=== PATIENT | female | born 1985 | race Caucasian/White ===

== ENCOUNTER 2018-07-21 15:04 | Emergency (ER) | payer BC, OTHER ==
[2018-07-21 15:15] VITALS: BP 180/111
[2018-07-21] MEDS: Sodium Chloride 0.9% 10 ML Syringe FLUSH PRN ×2 (15:53→17:19)
[2018-07-21] MEDS ORDERED: Iopamidol 755 Mg/ML 100 ML Bottle IVPUSH ONE (16:54)
[2018-07-21] MEDS ORDERED: Sodium Chloride 0.9% 10 ML Syringe FLUSH ONE (16:54)
[2018-07-21] MEDS ORDERED: Sodium Chloride 0.9% 100 ML IV SCH (17:00)
--- NOTE | 2018-07-21 17:35 | CT ---
CT chest Technique: Multiple axial sections through the chest were obtained. Intravenous contrast was utilized. Reconstructed coronal and sagittal images were obtained. Study performed as a pulmonary angiogram protocol. Comparison: Prior chest CT study of 04/08/15. Findings: Pulmonary arteries are not optimally opacified. No filling defects are seen within the main or segmental branches. Smaller subsegmental pulmonary emboli could easily be missed. Mediastinum and hilar regions are unremarkable. No axillary adenopathy is seen. Small portion of the upper abdominal structures that are seen appear within normal limits. Small subpleural nodule noted within the right lung base which is unchanged from prior CT exam. Second smaller and adjacent subpleural nodule is seen which is also felt to be stable. Third small subpleural nodule noted within the left base which is also stable. Lungs otherwise are clear. No acute parenchymal change is appreciated. No pleural effusions or pneumothorax is seen. Minimal hiatal hernia is noted. Bone window settings were reviewed which shows no acute osseous abnormality. Impression: 1. Less than optimal pulmonary angiogram as noted above. No pulmonary embolism within the main or segmental branches. Smaller subsegmental pulmonary emboli could be missed. 2. Other incidental findings as noted above. Nothing acute is appreciated. Diagnostic code #2
--- NOTE | 2018-07-21 18:06 | EDM.PDOC ---
ED HPI GENERAL MEDICAL PROBLEM - General Chief Complaint: Chest Pain Stated Complaint: CHEST PAIN Time Seen by Provider: 07/21/18 15:23 Source of Information: Reports: Patient History Limitations: Reports: No Limitations - History of Present Illness INITIAL COMMENTS - FREE TEXT/NARRATIVE: The patient presents with chest pain and shortness of breath. This started today. She says it is a little better. She has no fever, chills or cough. She says this has happened before. She had her 3rd child a few months ago and she had preeclampsia. She continued to have hypertension after that. She has gained weight after . Her blood pressure was elevated today. She is on losartan for the blood pressure. She noticed that her periods are irregular lately and when she does have her period her blood pressure will be elevated. She has no fever, chills, cough, congestion or runny nose. Onset: Gradual Duration: Hour(s): Location: Reports: Chest Quality: Reports: Sharp Severity: Moderate Improves with: Reports: None Worsens with: Reports: None Associated Symptoms: Reports: Chest Pain, Shortness of Breath. Denies: Cough, Fever/Chills, Headaches, Nausea/Vomiting Chest Pain Score (Numeric/FACES): 3 - Related Data Allergies Allergy/AdvReac Type Severity Reaction Status Date / Time citalopram Allergy Cannot Verified 07/21/18 15:13 Remember hydrochlorothiazide Allergy Cannot Verified 07/21/18 15:13 Remember lisinopril Allergy Cannot Verified 07/21/18 15:13 Remember Sulfa (Sulfonamide Allergy Cannot Verified 07/21/18 15:13 Antibiotics) Remember Home Meds: Home Meds Labetalol [Normodyne] 100 mg PO BID #60 tab 07/21/18 [Rx] Losartan [Cozaar] 100 mg PO DAILY 07/21/18 [History] Past Medical History Cardiovascular History: Reports: Hypertension Other Cardiovascular History: Periods of tachycardia and chest pain with unknown origin. 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 Psychiatric History: Reports: Anxiety Dermatologic History: Reports: Other (See Below) Other Dermatologic History: Cysts removed - Past Surgical History HEENT Surgical History: Reports: Tonsillectomy Other HEENT Surgeries/Procedures: Widson teeth removed GI Surgical History: Reports: Appendectomy Social & Family History - Family History Cardiac: Reports: Hypertension Oncologic: Reports: Lymphoma - Tobacco Use Smoking Status *Q: Never Smoker - Recreational Drug Use Recreational Drug Use: No ED ROS GENERAL - Review of Systems Review Of Systems: See Below Constitutional: Reports: No Symptoms HEENT: Reports: No Symptoms Respiratory: Reports: Shortness of Breath Cardiovascular: Reports: Chest Pain Endocrine: Reports: No Symptoms GI/Abdominal: Reports: No Symptoms : Reports: No Symptoms Musculoskeletal: Reports: No Symptoms ED EXAM, GENERAL - Physical Exam Exam: See Below Exam Limited By: No Limitations General Appearance: Alert, No Apparent Distress Ears: Normal External Exam Nose: Normal Inspection Head: Atraumatic, Normocephalic Neck: Normal Inspection Respiratory/Chest: No Respiratory Distress, Lungs Clear, Normal Breath Sounds Cardiovascular: Regular Rate, Rhythm, No Edema, No Murmur GI/Abdominal: Soft, Non-Tender, No Organomegaly, No Mass Back Exam: Normal Inspection Extremities: Normal Inspection EKG INTERPRETATION EKG Date: 07/21/18 Time: 15:15 Rhythm: Other (sinus tachycardia) Rate (Beats/Min): 107 [place]: Normal P-Wave: Present QRS: Normal ST-T: Normal QT: Normal Course - Vital Signs Last Recorded V/S: Last Vital Signs Temp 100.1 F 07/21/18 15:11 Pulse 119 H 07/21/18 15:11 Resp 26 H 07/21/18 15:11 BP 180/111 H 07/21/18 15:11 Pulse Ox 100 07/21/18 15:11 - Orders/Labs/Meds Orders: Active Orders 24 hr Category Date Time Status Cardiac Monitoring [RC] . DIRECTED Care 07/21/18 15:35 Active EKG Documentation Completion [RC] STAT Care 07/21/18 15:36 Active Peripheral IV Care [RC] . DIRECTED Care 07/21/18 15:36 Active Sodium Chloride 0.9% [Normal Saline] 100 ml Med 07/21/18 17:00 Active IV ASDIRECTED Sodium Chloride 0.9% [Saline Flush] Med 07/21/18 15:35 Active 10 ml FLUSH ASDIRECTED PRN Peripheral IV Insertion Adult [OM.PC] Stat Oth 07/21/18 15:35 Ordered Medication Orders Sodium Chloride (Normal Saline) 100 mls @ 60 mls/hr IV ASDIRECTED [facility] Last Admin: 07/21/18 17:19 Dose: 60 mls/hr Sodium Chloride (Saline Flush) 10 ml FLUSH ASDIRECTED PRN PRN Reason: Keep Vein Open Last Admin: 07/21/18 17:19 Dose: 10 ml Admin: 07/21/18 15:53 Dose: 10 ml Labs: Laboratory Tests 07/21/18 07/21/18 07/21/18 Range/Units 15:51 15:51 15:51 WBC 8.72 (3.98-10.04) K/mm3 RBC 5.12 (3.98-5.22) M/mm3 Hgb 15.6 (11.2-15.7) gm/L Hct 45.2 H (34.1-44.9) % MCV 88.3 (79.4-94.8) fl MCH 30.5 (25.6-32.2) pg MCHC 34.5 (32.2-35.5) g/dl RDW Std Deviation 41.4 (36.4-46.3) fL Plt Count 394 H (182-369) K/mm3 MPV 9.2 L (9.4-12.3) fl Neut % (Auto) 49.4 (34.0-71.1) % Lymph % (Auto) 43.0 (19.3-51.7) % Ellis % (Auto) 6.1 (4.7-12.5) % Eos % (Auto) 1.0 (0.7-5.8) Baso % (Auto) 0.5 (0.1-1.2) % Neut # (Auto) 4.31 (1.56-6.13) K/mm3 Lymph # (Auto) 3.75 H (1.18-3.74) K/mm3 Ellis # (Auto) 0.53 H (0.24-0.36) K/mm3 Eos # (Auto) 0.09 (0.04-0.36) K/mm3 Baso # (Auto) 0.04 (0.01-0.08) K/mm3 D-Dimer, Quantitative 0.62 H (0.19-0.50) mg/L Sodium 140 (136-145) mEq/L Potassium 4.0 (3.5-5.1) mEq/L Chloride 107 (98-107) mEq/L Carbon Dioxide 25 (21-32) mEq/L Anion Gap 12.0 (5-15) BUN 9 (7-18) mg/dL Creatinine 0.7 (0.55-1.02) mg/dL Est Cr Clr Drug Dosing 110.12 mL/min Estimated GFR (MDRD) > 60 (>60) mL/min BUN/Creatinine Ratio 12.9 L (14-18) Glucose 97 (74-106) mg/dL Calcium 8.8 (8.5-10.1) mg/dL Total Bilirubin 0.3 (0.2-1.0) mg/dL AST 17 (15-37) U/L ALT 22 (14-59) U/L Alkaline Phosphatase 60 (46-116) U/L Troponin I < 0.017 (0.00-0.056) ng/mL Total Protein 6.1 L (6.4-8.2) g/dl Albumin 1.9 L (3.4-5.0) g/dl Globulin 4.2 gm/dL Albumin/Globulin Ratio 0.5 L (1-2) TSH 3rd Generation 2.729 (0.358-3.74) uIU/mL HCG, Qual (NEGATIVE) 07/21/18 Range/Units 15:51 WBC (3.98-10.04) K/mm3 RBC (3.98-5.22) M/mm3 Hgb (11.2-15.7) gm/L Hct (34.1-44.9) % MCV (79.4-94.8) fl MCH (25.6-32.2) pg MCHC (32.2-35.5) g/dl RDW Std Deviation (36.4-46.3) fL Plt Count (182-369) K/mm3 MPV (9.4-12.3) fl Neut % (Auto) (34.0-71.1) % Lymph % (Auto) (19.3-51.7) % Ellis % (Auto) (4.7-12.5) % Eos % (Auto) (0.7-5.8) Baso % (Auto) (0.1-1.2) % Neut # (Auto) (1.56-6.13) K/mm3 Lymph # (Auto) (1.18-3.74) K/mm3 Ellis # (Auto) (0.24-0.36) K/mm3 Eos # (Auto) (0.04-0.36) K/mm3 Baso # (Auto) (0.01-0.08) K/mm3 D-Dimer, Quantitative (0.19-0.50) mg/L Sodium (136-145) mEq/L Potassium (3.5-5.1) mEq/L Chloride (98-107) mEq/L Carbon Dioxide (21-32) mEq/L Anion Gap (5-15) BUN (7-18) mg/dL Creatinine (0.55-1.02) mg/dL Est Cr Clr Drug Dosing mL/min Estimated GFR (MDRD) (>60) mL/min BUN/Creatinine Ratio (14-18) Glucose (74-106) mg/dL Calcium (8.5-10.1) mg/dL Total Bilirubin (0.2-1.0) mg/dL AST (15-37) U/L ALT (14-59) U/L Alkaline Phosphatase (46-116) U/L Troponin I (0.00-0.056) ng/mL Total Protein (6.4-8.2) g/dl Albumin (3.4-5.0) g/dl Globulin gm/dL Albumin/Globulin Ratio (1-2) TSH 3rd Generation (0.358-3.74) uIU/mL HCG, Qual Negative (NEGATIVE) Meds: Medications Generic Name Dose Route Start Last Admin Trade Name Freq PRN Reason Stop Dose Admin Sodium Chloride 100 mls @ 60 mls/hr 07/21/18 17:00 07/21/18 17:19 Normal Saline IV 60 mls/hr ASDIRECTED BIRDIE Administration Sodium Chloride 10 ml 07/21/18 15:35 07/21/18 17:19 Saline Flush FLUSH 10 ml ASDIRECTED PRN Administration Keep Vein Open Discontinued Medications Generic Name Dose Route Start Last Admin Trade Name Freq PRN Reason Stop Dose Admin Iopamidol 100 ml 07/21/18 16:54 07/21/18 17:19 Isovue-370 (76%) IVPUSH 07/21/18 16:55 100 ml ONETIME ONE Administration Sodium Chloride 10 ml 07/21/18 16:54 Saline Flush FLUSH 07/21/18 16:55 ONETIME ONE - Re-Assessments/Exams Free Text/Narrative Re-Assessment/Exam: 07/21/18 18:07 Her CBC looks good. Her CMP was negative. Her HCG was negative along with her TSH. Her D-dimer was elevated at 0.62. I ordered a CT angio of her chest and it shows nothing acute. 07/21/18 18:14 She is frustrated with how her blood pressure has been. She was on labetalol once and that helped better. I will switch her to the labetalol and have her wean of the losartan. Departure - Departure Time of Disposition: 18:20 Disposition: Home, Self-Care 01 Condition: Good Clinical Impression: Atypical chest pain Hypertension Qualifiers: Hypertension type: essential hypertension Qualified Code(s): I10 - Essential ( primary) hypertension Prescriptions: Labetalol [Normodyne] 100 mg PO BID #60 tab Referrals: Ivonne Merino NP [Primary Care Provider] - Sb Kaur MD [Physician] - 1 Week Sherie Mojica MD [Physician] - 1 Week Forms: ED Department Discharge Additional Instructions: Wean off of your losartan by taking a dose every other day for 3 doses. Take the labetalol 100mg 2 times per day. Follow up with Dr Kaur and Dr Mojica within a week. Please return if you are worse. - My Orders Last 24 Hours: My Active Orders 07/21/18 15:35 Cardiac Monitoring [RC] . DIRECTED Sodium Chloride 0.9% [Saline Flush] 10 ml FLUSH ASDIRECTED PRN Peripheral IV Insertion Adult [OM.PC] Stat 07/21/18 15:36 EKG Documentation Completion [RC] STAT Peripheral IV Care [RC] . DIRECTED 07/21/18 17:00 Sodium Chloride 0.9% [Normal Saline] 100 ml IV ASDIRECTED - Assessment/Plan Last 24 Hours: My Active Orders 07/21/18 15:35 Cardiac Monitoring [RC] . DIRECTED Sodium Chloride 0.9% [Saline Flush] 10 ml FLUSH ASDIRECTED PRN Peripheral IV Insertion Adult [OM.PC] Stat 07/21/18 15:36 EKG Documentation Completion [RC] STAT Peripheral IV Care [RC] . DIRECTED 07/21/18 17:00 Sodium Chloride 0.9% [Normal Saline] 100 ml IV ASDIRECTED
== END 2018-07-21 18:38 | disposition home or self-care (01) ==
LOC: JD.ED 15:04
DX: R07.89 Other chest pain (principal); I10 Essential (primary) hypertension; Z88.8 Allergy status to other drugs, medicaments and biological substances; Z88.2 Allergy status to sulfonamides; Z79.899 Other long term (current) drug therapy; Z98.890 Other specified postprocedural states; Z90.49 Acquired absence of other specified parts of digestive tract
CPT/HCPCS: 36415; 71275; 80053; 84443; 84484; 84703; 85025; 85379; 93005; 99285; J7030; Q9967; 93010; 99284

== ENCOUNTER 2019-02-27 12:49 | Emergency (ER) | payer OTHER ==
[2019-02-27 13:28] VITALS: BP 178/103; PULSE 86
--- NOTE | 2019-02-27 17:11 | US ---
Renal ultrasound with renal arterial Doppler: Multiple real-time images of the kidneys were obtained as well as duplex and color Doppler evaluation of the renal arteries. Technologist's note: Suboptimal exam due to patient body habitus Right kidney shows no hydronephrosis. Left kidney shows a slightly prominent collecting system. Difficult to exclude early change from ureteral obstruction if patient has corresponding symptoms. Cortical thickness appears preserved within both kidneys. Resistivity indices are normal within both kidneys. Maximum systolic velocity measurement within the right renal artery is 1.13 m/s which is distally. Maximum systolic velocity measurement within the left renal artery is 1.6 m/s which is distally. Both renal veins are patent. Prevoid bladder volume is 178 mL and post void bladder volume is 5 mL. Impression: 1. Slightly prominent collecting system of the left kidney. This can be normal as well as represent change from early ureteral obstruction if patient has any correlating symptoms. 2. No findings of hemodynamic significant stenosis are seen within either renal artery. Diagnostic code #3
[2019-02-27] MEDS ORDERED: Acetaminophen 325 MG Tab PO ONE (18:41)
--- NOTE | 2019-02-27 18:42 | EDM.PDOC ---
ED HPI GENERAL MEDICAL PROBLEM - General Chief Complaint: Flank Pain Stated Complaint: FLANK PAIN Time Seen by Provider: 02/27/19 13:44 Source of Information: Reports: Patient, RN Notes Reviewed - History of Present Illness INITIAL COMMENTS - FREE TEXT/NARRATIVE: 33-year-old female comes in with 2 day history of left flank and back discomfort. She has been evaluated for the past 2 days at [facility]. She did have a renal CT yesterday that did not show any evidence for kidney stone other than slightly dilated left collecting system. See radiology report for details. She then did have a follow-up visit today at the clinic. UA 2 days ago and today at the clinic were negative for any evidence for UTI. However she was noted to have proteinuria and low serum protein. A d dimer was done that was very mildly elevated. She was than sent here for further evaluation. Left Flank Pain Score (Numeric/FACES): 7 - Related Data Allergies Allergy/AdvReac Type Severity Reaction Status Date / Time citalopram Allergy Cannot Verified 02/27/19 13:28 Remember hydrochlorothiazide Allergy Cannot Verified 02/27/19 13:28 Remember lisinopril Allergy Cannot Verified 02/27/19 13:28 Remember Sulfa (Sulfonamide Allergy Cannot Verified 02/27/19 13:28 Antibiotics) Remember Home Meds: Home Meds Ondansetron [Zofran ODT] 4 mg PO Q6H PRN 02/27/19 [History] amLODIPine [Norvasc] 5 mg PO DAILY 02/27/19 [History] cephALEXin [Cephalexin] 500 mg PO BID 02/27/19 [History] Past Medical History Cardiovascular History: Reports: Hypertension, Syncope Other Cardiovascular History: Periods of tachycardia and chest pain with unknown origin. 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 , transient proteinuria Psychiatric History: Reports: Anxiety Dermatologic History: Reports: Other (See Below) Other Dermatologic History: Cysts removed - Past Surgical History HEENT Surgical History: Reports: Tonsillectomy Other HEENT Surgeries/Procedures: Widson teeth removed GI Surgical History: Reports: Appendectomy Social & Family History - Family History Family Medical History: Noncontributory Cardiac: Reports: Hypertension Oncologic: Reports: Lymphoma - Tobacco Use Smoking Status *Q: Never Smoker - Caffeine Use Caffeine Use: Reports: Coffee - Recreational Drug Use Recreational Drug Use: No ED ROS GENERAL - Review of Systems Review Of Systems: See Below Constitutional: Denies: Fever, Chills, Diaphoresis HEENT: Reports: No Symptoms Respiratory: Denies: Shortness of Breath Cardiovascular: Denies: Chest Pain GI/Abdominal: Reports: Abdominal Pain (primarily L flank). Denies: Diarrhea, Nausea, Vomiting Musculoskeletal: Reports: Back Pain (L flank and back pain for the last 2 to 3 days) Skin: Reports: No Symptoms Neurological: Reports: No Symptoms ED EXAM, RENAL/ - Physical Exam Exam: See Below General Appearance: Alert, No Apparent Distress Throat/Mouth: Normal Inspection Respiratory/Chest: No Respiratory Distress, Lungs Clear, Normal Breath Sounds Cardiovascular: Regular Rate, Rhythm GI/Abdominal: Soft, Non-Tender Back Exam: CVA Tenderness (L) (mild). No: Paraspinal Tenderness, Vertebral Tenderness Extremities: Normal Inspection, Normal Range of Motion, Pedal Edema (very mild bilat). No: Leg Pain, Increased Warmth, Redness Neurological: Alert, Oriented, No Motor/Sensory Deficits Skin Exam: Warm, Dry, Normal Color Course - Vital Signs Last Recorded V/S: Last Vital Signs Temp 98.3 F 02/27/19 13:23 Pulse 86 02/27/19 13:23 Resp 15 02/27/19 13:23 BP 178/103 H 02/27/19 13:23 Pulse Ox 99 02/27/19 13:23 - Orders/Labs/Meds Labs: Laboratory Tests 02/27/19 02/27/19 02/27/19 Range/Units 14:15 14:15 14:15 ESR 85 H (0-20) mm/hr C-Reactive Protein < 0.2 (<1.0) mg/dL TSH 3rd Generation 2.786 (0.358-3.74) uIU/mL Meds: Medications Discontinued Medications Generic Name Dose Route Start Last Admin Trade Name Freq PRN Reason Stop Dose Admin Acetaminophen 975 mg 02/27/19 18:41 02/27/19 19:03 Tylenol PO 02/27/19 18:42 975 mg NOW ONE Administration - Re-Assessments/Exams Free Text/Narrative Re-Assessment/Exam: 03/04/19 08:35, Renal US was done. It showed mild dilitation of the renal collecting system bilat. No evidence for renal artery stenosis or renal vein thrombosisl. See Radiology report for details. I did discuss this with the Neprologist stone trimmer for [facility]. He has advised patient call their clinic Saturday, 3 days for now for appointment early next week. Labs from clinic and CT report from clinic reviewed and discussed with Insect Control Inspector as well. Patient given tylenol for discomfort and she did relatively well with that. Departure - Departure Time of Disposition: 19:26 Disposition: Home, Self-Care 01 Condition: Fair Clinical Impression: Nephrotic syndrome Hypertension Qualifiers: Hypertension type: essential hypertension Qualified Code(s): I10 - Essential ( primary) hypertension - Discharge Information Instructions: Nephrotic Syndrome, Hypertension, [id number] Referrals: Autumn Alba MD [Primary Care Provider] - Forms: ED Department Discharge Additional Instructions: Rest, drink plenty of water to maintain hydration, continue blood pressure medication prescribed 2 days ago. Tylenol 2-3 times daily as needed for discomfort, you also can try alternate ice and heat for further pain relief. Call [facility] first thing Saturday, to see one of the Insect Control Inspector preferably Saturday or Saturday. I did discuss this with Dr Rubén Ratliff this evening. 24 hour urine collection to start Saturday as planned. Return to ED as needed.
== END 2019-02-27 19:40 | disposition home or self-care (01) ==
LOC: JD.ED 12:49
DX: N04.9 Nephrotic syndrome with unspecified morphologic changes (principal); I10 Essential (primary) hypertension; Z88.8 Allergy status to other drugs, medicaments and biological substances; Z88.2 Allergy status to sulfonamides; Z79.899 Other long term (current) drug therapy
CPT/HCPCS: 36415; 76775; 84443; 85652; 86140; 93976; 99284; A9270

== ENCOUNTER 2019-05-25 17:29 | Emergency (ER) | payer OTHER ==
[2019-05-25 17:37] VITALS: BP 137/98; PULSE 93
[2019-05-25] MEDS ORDERED: Metoclopramide 10 MG/2 ML SDV IVPUSH ONE (18:23)
--- NOTE | 2019-05-25 18:25 | EDM.PDOC ---
ED HPI GENERAL MEDICAL PROBLEM - General Chief Complaint: Gastrointestinal Problem Stated Complaint: JOINT PROBLEMS Time Seen by Provider: 05/25/19 18:10 Source of Information: Reports: Patient, Family (spouse) History Limitations: Reports: No Limitations - History of Present Illness INITIAL COMMENTS - FREE TEXT/NARRATIVE: 34-year-old female presents to the ED with acute onset of illness at midnight last night. She started vomiting and she vomited twice of bilious material. No blood reported. She then suddenly developed diarrhea and has had diarrhea every 45 minutes to an hour since that time. She feels very lightheaded dizzy and weak with standing. Of note her children at home have had similar type illness although they apparently also had coughs and fever somewhat suggestive of influenza B. She has no cough and no high fever. She has had some chills. Diagnosed with a form of glomerulonephritis identified by biopsy towards the end of February of last year and subtotally started on Prograf. The Prograf dosage has been recently increased. She primarily had severe proteinuria. He also has associated hypertension which is come under good control with amlodipine and losartan. At present she appears very pallid. Complaining of some abdominal cramping pain and persistent nausea. Eyes been on any recent antibiotics. It's unlikely that this is foodborne as no one else in the family is ill and they didn't eat out yesterday. She's complaining of cramps all over body. Her hands were intact need for a period of time suggesting hypocalcemia/ hypokalemia. It's the diarrhea is quite prolific large-volume yellow water stool loss without blood. Onset: Today Onset Date: 05/25/19 Onset Time: 00:00 Duration: Hour(s):, Getting Worse Location: Reports: Abdomen, Generalized (Nausea vomiting and severe diarrhea starting at midnight last night. Generalized weakness lightheadedness and dizziness.) Quality: Reports: Other Severity: Severe (Generalized weakness) Improves with: Reports: None Worsens with: Reports: Other (Try to walk or stand up.) Context: Reports: Other. Denies: Activity, Exercise, Lifting, Sick Contact, Trauma Associated Symptoms: Reports: Fever/Chills, Loss of Appetite, Malaise, Nausea/ Vomiting, Other (Severe diarrhea.). 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 05/25/19 [Rx] Ondansetron [Zofran] 4 mg BUCCAL Q6H PRN #5 tab 05/25/19 [Rx] Past Medical History Cardiovascular History: Reports: Hypertension, Syncope Other Cardiovascular History: Periods of tachycardia and chest pain with unknown origin. 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: Reports: Other 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: PIH current , transient proteinuria Psychiatric History: Reports: Anxiety Dermatologic History: Reports: Other (See Below) Other Dermatologic History: Cysts removed - Past Surgical History HEENT Surgical History: Reports: Tonsillectomy Other HEENT Surgeries/Procedures: Widson teeth removed GI Surgical History: Reports: Appendectomy Social & Family History - Family History Family Medical History: Noncontributory Cardiac: Reports: Hypertension Oncologic: Reports: Lymphoma - Tobacco Use Smoking Status *Q: Never Smoker Second Hand Smoke Exposure: No - Caffeine Use Caffeine Use: Reports: None - Recreational Drug Use Recreational Drug Use: No - Living Situation & Occupation Living situation: Reports: Occupation: Unemployed (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 She does admit that she developed significant preeclampsia with her last but the proteinuria never cleared up. Reports unclear when she developed renal disease.) ED ROS GENERAL - Review of Systems Review Of Systems: See Below Constitutional: Reports: Chills, Malaise, Weakness, Fatigue, Decreased Appetite. Denies: Fever HEENT: Reports: No Symptoms Respiratory: Reports: No Symptoms Cardiovascular: Reports: No Symptoms Endocrine: Reports: Fatigue GI/Abdominal: Reports: Abdominal Pain, Diarrhea (Intermittent abdominal cramping pain.), Nausea, Vomiting (Vomited twice since midnight ileus primarily. ). Denies: Hematochezia ( Diarrhea since midnight she states yellow watery high -volume stool losses almost every 45 minutes.) : Reports: Other (He has only passed or water once since midnight.) Musculoskeletal: Reports: Back Pain, Other (Generalized weakness with intermittent cramping of her hands slight tetany cramps in her lower extremities as well suggesting volume depletion.) Skin: Reports: No Symptoms Neurological: Reports: Dizziness Psychiatric: Reports: No Symptoms (Dizzy lightheaded when she stands up and tries to walk.) Hematologic/Lymphatic: Reports: No Symptoms Immunologic: Reports: No Symptoms ED EXAM, GI/ABD - Physical Exam Exam: See Below Exam Limited By: No Limitations General Appearance: Alert, WD/WN, Moderate Distress, Other (Ration is quite pallid in appearance. She does appear acutely ill. She is cool and clammy to touch. Temperature is 36.1. Pulse is 93 and sinus respiratory 16 BP 137/98 pulse ox 100% on room air. The pressure sites were recording is 124/98) Throat/Mouth: Other Head: Atraumatic, Normocephalic (Tongue is very dry and coated.) Neck: Normal Inspection, Supple, Non-Tender ( Otherwise clear), Full Range of Motion. No: Lymphadenopathy (L), Lymphadenopathy (R) Respiratory/Chest: No Respiratory Distress, Lungs Clear, Normal Breath Sounds, No Accessory Muscle Use, Respiratory Distress Cardiovascular: Normal Peripheral Pulses, Regular Rate, Rhythm, No Edema, No Gallop, No Murmur, No Rub GI/Abdominal Exam: Normal Bowel Sounds, Soft, Non-Tender, No Organomegaly, No Abnormal Bruit, No Mass, Pelvis Stable, Other (Patient has had previous appendectomy.) Back Exam: Normal Inspection, Full Range of Motion. No: CVA Tenderness (L), CVA Tenderness (R) Extremities: Normal Inspection, Normal Range of Motion, Non-Tender. No: Pedal Edema Neurological: Alert, Oriented, CN II-XII Intact, Normal Cognition Psychiatric: Normal Affect, Normal Mood Skin Exam: Warm, Dry, Intact, Normal Color, No Rash Course - Vital Signs Last Recorded V/S: Last Vital Signs Temp 36.1 C 05/25/19 17:35 Pulse 93 05/25/19 17:35 Resp 16 05/25/19 17:35 BP 137/98 H 05/25/19 17:35 Pulse Ox 100 05/25/19 17:35 - Orders/Labs/Meds Labs: Laboratory Tests 05/25/19 05/25/19 Range/Units 18:40 18:40 WBC 10.18 H (3.98-10.04) K/mm3 RBC 5.11 (3.98-5.22) M/mm3 Hgb 16.0 H (11.2-15.7) gm/dl Hct 44.0 (34.1-44.9) % MCV 86.1 (79.4-94.8) fl MCH 31.3 (25.6-32.2) pg MCHC 36.4 H (32.2-35.5) g/dl RDW Std Deviation 40.4 (36.4-46.3) fL Plt Count 396 H (182-369) K/mm3 MPV 9.0 L (9.4-12.3) fl Neut % (Auto) 88.6 H (34.0-71.1) % Lymph % (Auto) 6.5 L (19.3-51.7) % [place] % (Auto) 4.6 L (4.7-12.5) % Eos % (Auto) 0.1 L (0.7-5.8) Baso % (Auto) 0.1 (0.1-1.2) % Neut # (Auto) 9.02 H (1.56-6.13) K/mm3 Lymph # (Auto) 0.66 L (1.18-3.74) K/mm3 [place] # (Auto) 0.47 H (0.24-0.36) K/mm3 Eos # (Auto) 0.01 L (0.04-0.36) K/mm3 Baso # (Auto) 0.01 (0.01-0.08) K/mm3 Manual Slide Review Abnormal smear Sodium 139 (136-145) mEq/L Potassium 3.8 (3.5-5.1) mEq/L Chloride 105 (98-107) mEq/L Carbon Dioxide 23 (21-32) mEq/L Anion Gap 14.8 (5-15) BUN 10 (7-18) mg/dL Creatinine 0.8 (0.55-1.02) mg/dL Est Cr Clr Drug Dosing 95.45 mL/min Estimated GFR (MDRD) > 60 (>60) mL/min BUN/Creatinine Ratio 12.5 L (14-18) Glucose 109 H (74-106) mg/dL Calcium 8.2 L (8.5-10.1) mg/dL Magnesium 1.3 L (1.8-2.4) mg/dl Total Bilirubin 0.7 (0.2-1.0) mg/dL AST 13 L (15-37) U/L ALT 15 (14-59) U/L Alkaline Phosphatase 64 (46-116) U/L C-Reactive Protein 2.6 H* (<1.0) mg/dL Total Protein 6.2 L (6.4-8.2) g/dl Albumin 2.1 L (3.4-5.0) g/dl Globulin 4.1 gm/dL Albumin/Globulin Ratio 0.5 L (1-2) Lipase 84 (73-393) U/L Meds: Medications Discontinued Medications Generic Name Dose Route Start Last Admin Trade Name Freq PRN Reason Stop Dose Admin Hydromorphone HCl 0.5 mg 05/25/19 18:56 05/25/19 19:01 Dilaudid IVPUSH 05/25/19 18:57 0.5 mg ONETIME ONE Administration Hydromorphone HCl 0.5 mg 05/25/19 20:32 05/25/19 20:38 Dilaudid IVPUSH 05/25/19 20:33 0.5 mg ONETIME ONE Administration Dextrose/Lactated Ringer's 1,000 mls @ 999 mls/hr 05/25/19 18:30 05/25/19 18: 43 Dextrose 5%-Lactated Ringers IV 999 mls/hr ASDIRECTED BIRDIE Administration Dextrose/Lactated Ringer's 1,000 mls @ 500 mls/hr 05/25/19 19:45 05/25/19 19: 58 Dextrose 5%-Lactated Ringers IV 500 mls/hr ASDIRECTED BIRDIE Administration Magnesium Sulfate 4 gm/ Premix 50 mls @ 12.5 mls/hr 05/25/19 19:46 05/25/19 19:58 IV 05/25/19 23:45 12.5 mls/hr ONETIME ONE Administration Metoclopramide HCl 7.5 mg 05/25/19 18:23 05/25/19 18:42 Reglan IVPUSH 05/25/19 18:24 7.5 mg ONETIME ONE Administration - Radiology Interpretation Free Text/Narrative:: 34-year-old female presents to the ED with acute onset of nausea vomiting and diarrhea which sounds like viral gastroenteritis pattern with high volumes diarrheal losses since midnight last night. 2 of her children are sick with similar type illness although he also developed cough and low-grade fevers. Is very weak and lightheaded and dizzy upon standing. She is also developing severe cramps in her extremities and her hands almost like tetany. Patient has a focal sclerosing glomerulonephritis and is being treated with Prograf daily since early March last year. She has not been able keep her Prograf down today. Patient has pallid and volume depleted. I don't think she would tolerate orthostatic blood pressure checks Land D5 LR at open. Reglan 7.5mg IV to arrest vomiting. - Re-Assessments/Exams Free Text/Narrative Re-Assessment/Exam: 05/25/19 18:56 complaining of diffuse back pain. Will give Dilaudid 0.5 g IV for pain relief as NSAIDs are contraindicated due to her renal disease. 05/25/19 19:34 Labs reveal a normal white count at 10.18. The auto differential shows 88.6% neutrophils however. Hemoglobin is 16.0 with hematocrit of 44.0. MCV is 86.1. Bili count 396,000 slightly elevated. Slides shows neutrophilia but no bandemia. Sodium 139 with potassium of 3.8. Chloride is 105 with a bicarbonate 23. And a gap is 14.8. BUN is 10 with a creatinine of 0.8. GFR remains greater than 60. Glucose is 109 with a calcium of 8.2. Magnesium is very low at 1.3. Bilirubin is 0.7 AST is 13 with an ALT of 15. Alkaline phosphatase is 64. C-reactive protein is mildly elevated at 2.6. Total protein is 6.2 with a low albumin at 2.1. Lipase is 84. She will be given magnesium 4 g intravenously while in the ED. 05/25/19 20:32 patient is feeling better but still experiencing some cramps in her back. Will repeat Dilaudid 0.5 mg IV. 05/25/19 22:17 she is feeling much better after completing 4 g of magnesium sulfate intravenously and 2 L of IV fluids. She has no further nausea and she's had no diarrhea while in the department. She will be discharged home on a clear fluid diet to avoid dairy products and alpha juice grape juice until stools are formed backup. Prescription written for both her milligrams sublingually to be used every 4 hours necessary to eliminate any further nausea or vomiting. Plan was filled through the [facility]. Departure - Departure Time of Disposition: 22:18 Disposition: Home, Self-Care 01 Condition: Fair Clinical Impression: Hypomagnesemia, Volume depletion, Viral gastroenteritis - Discharge Information *PRESCRIPTION DRUG MONITORING PROGRAM REVIEWED*: Not Applicable *COPY OF PRESCRIPTION DRUG MONITORING REPORT IN PATIENT ANJELICA: Not Applicable Prescriptions: Magnesium Chloride [Slow-Mag] 71.5 mg PO DAILY #30 tablet. Ondansetron [Zofran] 4 mg BUCCAL Q6H PRN #5 tab PRN Reason: nausea or vomiting Instructions: Viral Gastroenteritis, Adult Referrals: Autumn Alba MD [Primary Care Provider] - Forms: ED Department Discharge Additional Instructions: Evaluation the emergency room tonight in regards to development of acute onset of nausea vomiting and prolific diarrhea causing volume depletion and dehydration. Lab tests also identified significant depletion of serum magnesium level down at 1.3 and normal should be around 2.0. I believe this had component of causing her severe cramps. Patient. You're treated with 2 L of intravenous fluids and magnesium replacement with 4 g of magnesium intravenously while in the ED. Suggest that you take clear fluids such as Gatorade or Powerade 5-6 ounces sipped per hour for the next 12 hours or so. When hungry try soda crackers first. If tolerated may advance to bread with jam on it. Tolerated may advance to soup psych turkey rice/chicken noodle. Suggest avoiding all dairy products and no apple juice or grape juice until stools are formed back up. I' ve written a prescription for Zofran 4 mg a chicken take on your tongue every 4 hours as necessary for relief of any further nausea or vomiting. Also redness prescription for slow mag a magnesium supplement tablet that you're to take once daily until he could have your magnesium level checked again in the lab sometime in the next 10 days to 2 weeks. Return to medical care if vomiting or diarrhea persists you're unable to keep down medication. Suggest taking your Prograf medication when she get home tonight. Sepsis Event Note - Evaluation Sepsis Screening Result: No Definite Risk - Focused Exam Vital Signs: Vital Signs Temp Pulse Resp BP Pulse Ox 05/25/19 17:35 36.1 C 93 16 137/98 H 100 Date Exam was Performed: 05/25/19 Time Exam was Performed: 22:41
[2019-05-25] MEDS ORDERED: Dextrose 5%-Lactated Ringers 1,000 ML IV SCH ×2 (18:30→19:45)
[2019-05-25] MEDS ORDERED: HYDROmorphone 0.5 MG/0.5 ML Syringe IVPUSH ONE ×2 (18:56→20:32)
[2019-05-25] MEDS ORDERED: Magnesium Sulfate/Water 4 GM in Premix Bag 1 BAG IV ONE (19:46)
== END 2019-05-25 22:28 | disposition home or self-care (01) ==
LOC: JD.ED 17:29
DX: A08.4 Viral intestinal infection, unspecified (principal); E83.42 Hypomagnesemia; E86.9 Volume depletion, unspecified; I10 Essential (primary) hypertension; Z88.2 Allergy status to sulfonamides; Z88.8 Allergy status to other drugs, medicaments and biological substances; Z79.899 Other long term (current) drug therapy; Z98.890 Other specified postprocedural states
CPT/HCPCS: 36415; 80053; 83690; 83735; 85025; 86140; 96361; 96365; 96366; 96375; 96376; 99284; J1170; J2765; J3475; J7121

== ENCOUNTER 2020-09-14 17:46 | Emergency (ER) | payer OTHER ==
[2020-09-14] MEDS ORDERED: Sodium Chloride 0.9% 1,000 ML IV ONE (17:53)
[2020-09-14] MEDS ORDERED: Sodium Chloride 0.9% 10 ML Syringe FLUSH PRN (17:53)
[2020-09-14 18:07] VITALS: BP 177/114; PULSE 111
--- NOTE | 2020-09-14 18:23 | EDM.PDOC ---
ED HPI GENERAL MEDICAL PROBLEM - General Chief Complaint: Chest Pain Stated Complaint: CHEST PAIN/SOB/SENT BY [facility] Time Seen by Provider: 09/14/20 17:52 Source of Information: Reports: Patient, RN Notes Reviewed History Limitations: Reports: No Limitations - History of Present Illness INITIAL COMMENTS - FREE TEXT/NARRATIVE: Patient is a 35-year-old female who presents to the ER for the evaluation of her shortness of breath. Patient was seen by Autumn Alba in the [facility] [facility] clinic today, she had a multitude of labs done, and 2 CTAs to rule out pulmonary embolus. Patient has a history of focal segmental glomerulosclerosis, and has been under the care of Dr. Whitten for this. The patient is on Prograf normally, but wanted to get the COVID-19 vaccine, so she stopped just prior to getting the Covid vaccine about 7 weeks ago. Patient states she is felt under the weather for some time, but recently just started her Prograf for 5 days ago, and states that everything seems to have been getting worse, she had some chest pain, shortness of breath, feelings of general malaise has been running a low intermittent fever of 100.3 F. The patient's D-dimer today was 0.54, somewhat elevated, but the troponin and EKG were all unremarkable for acute ischemic change. Laboratory evaluation demonstrates no focal abnormalities. Patient was tested for COVID-19 at the clinic and that she was negative for today's purposes. Again she did have 2 CTAs done at the clinic and both of the studies were subpar and the radiology department was requesting the patient have a VQ scan to definitely rule out pulmonary embolus. Autumn Alba did not have the facilities to do so so she sent to the ER for transfer to [place]. Chest Pain Score (Numeric/FACES): 6 - Related Data Allergies Allergy/AdvReac Type Severity Reaction Status Date / Time citalopram Allergy Cannot Verified 05/25/19 17:37 Remember hydrochlorothiazide Allergy Cannot Verified 05/25/19 17:37 Remember lisinopril Allergy Cannot Verified 05/25/19 17:37 Remember Sulfa (Sulfonamide Allergy Cannot Verified 05/25/19 17:37 Antibiotics) Remember Home Meds: Home Meds amLODIPine [Norvasc] 5 mg PO DAILY 02/27/19 [History] Magnesium Chloride [Slow-Mag] 71.5 mg PO DAILY #30 tablet. 05/25/19 [Rx] Ondansetron [Zofran] 4 mg BUCCAL Q6H PRN #5 tab 05/25/19 [Rx] Past Medical History Cardiovascular History: Reports: Hypertension, Syncope Other Cardiovascular History: Periods of tachycardia and chest pain with unknown origin. 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 History: PIH current , transient proteinuria Psychiatric History: Reports: Anxiety Immunologic History: Reports: Immunosuppression (on Prograf for FSGS) Dermatologic History: Reports: Other (See Below) Other Dermatologic History: Cysts removed - Past Surgical History HEENT Surgical History: Reports: Tonsillectomy Other HEENT Surgeries/Procedures: Widson teeth removed Cardiovascular Surgical History: Reports: None GI Surgical History: Reports: Appendectomy Social & Family History - Family History Family Medical History: No Pertinent Family History Cardiac: Reports: Hypertension Oncologic: Reports: Lymphoma - Tobacco Use Tobacco Use Status *Q: Never Tobacco User - Caffeine Use Caffeine Use: Reports: None - Living Situation & Occupation Living situation: Reports: Occupation: Unemployed (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 She does admit that she developed significant preeclampsia with her last but the proteinuria never cleared up. Reports unclear when she developed renal disease.) ED ROS GENERAL - Review of Systems Review Of Systems: Comprehensive ROS is negative, except as noted in HPI. ED EXAM, GENERAL - Physical Exam Exam: See Below Exam Limited By: No Limitations General Appearance: Alert, WD/WN, No Apparent Distress Respiratory/Chest: No Respiratory Distress, Lungs Clear, Normal Breath Sounds, No Accessory Muscle Use, Chest Non-Tender Cardiovascular: Normal Peripheral Pulses, Regular Rate, Rhythm, No Edema Peripheral Pulses: 2+: Radial (L), Radial (R) GI/Abdominal: Normal Bowel Sounds, Soft, Non-Tender, No Distention, No Mass Extremities: Normal Inspection, Normal Capillary Refill Neurological: Alert, Oriented, Normal Cognition, No Motor/Sensory Deficits Psychiatric: Normal Affect, Normal Mood Skin Exam: Warm, Dry, Intact, Normal Color, No Rash Course - Vital Signs Last Recorded V/S: Last Vital Signs Temp 97.8 F 09/14/20 18:02 Pulse 111 H 09/14/20 18:02 Resp 16 09/14/20 18:02 BP 177/114 H 09/14/20 18:02 Pulse Ox 98 09/14/20 18:02 - Orders/Labs/Meds Orders: Active Orders 24 hr Category Date Time Status Peripheral IV Care [RC] . DIRECTED Care 09/14/20 17:53 Ordered Sodium Chloride 0.9% [Normal Saline] 1,000 ml Med 09/14/20 17:53 Ordered IV ONETIME Sodium Chloride 0.9% [Saline Flush] Med 09/14/20 17:53 Ordered 10 ml FLUSH ASDIRECTED PRN Peripheral IV Insertion Adult [OM.PC] Routine Oth 09/14/20 17:52 Ordered Medication Orders Sodium Chloride (Normal Saline) 1,000 mls @ 999 mls/hr IV ONETIME ONE Stop: 09/14/20 18:53 Last Admin: 09/14/20 18:12 Dose: 999 mls/hr Documented by: DEANN Sodium Chloride (Sodium Chloride 0.9% 10 Ml Syringe) 10 ml FLUSH ASDIRECTED PRN PRN Reason: Keep Vein Open Last Admin: 09/14/20 18:12 Dose: 10 ml Documented by: DEANN Meds: Medications Generic Name Dose Route Start Last Admin Trade Name Freq PRN Reason Stop Dose Admin Sodium Chloride 1,000 mls @ 999 mls/hr 09/14/20 17:53 09/14/20 18:12 Normal Saline IV 09/14/20 18:53 999 mls/hr ONETIME ONE Administration Sodium Chloride 10 ml 09/14/20 17:53 09/14/20 18:12 Sodium Chloride 0.9% 10 Ml Syringe FLUSH 10 ml ASDIRECTED PRN Administration Keep Vein Open - Re-Assessments/Exams Free Text/Narrative Re-Assessment/Exam: 09/14/20 18:25 Patient presents to the ER for the evaluation of her ongoing shortness of breath . The patient ultimately shows up into the ER to have transfer facilitated to [facility] for ongoing management. Patient does require IV fluids to be given due to her kidney disease, and the need for 2 CTAs done at today's clinic visit. IV has been started and fluids have been given. I did talk with Dr. Mandel at the [facility] ER, and he does ultimately accept the patient for transfer. They do have nuclear med on-call, and can perform a V/Q scan. Further disposition for observation versus discharge home will be determined by the ER doctor in [place]. Labs, imaging has been sent to their facility for their review. Departure - Departure Time of Disposition: 18:27 Disposition: DC/Tfer to Acute Hospital 02 Condition: Good Clinical Impression: SOB (shortness of breath), Immunosuppression due to drug therapy, FSGS (focal segmental glomerulosclerosis) Chest pain Qualifiers: Chest pain type: other chest pain Qualified Code(s): R07.89 - Other chest pain; R07.8 - Other chest pain - Discharge Information *PRESCRIPTION DRUG MONITORING PROGRAM REVIEWED*: No *COPY OF PRESCRIPTION DRUG MONITORING REPORT IN PATIENT ANJELICA: No Referrals: Autumn Alba NP [Primary Care Provider] - Sepsis Event Note (ED) - Evaluation Sepsis Screening Result: No Definite Risk - Focused Exam Vital Signs: Vital Signs Temp Pulse Resp BP Pulse Ox 09/14/20 18:02 97.8 F 111 H 16 177/114 H 98 - My Orders Last 24 Hours: My Active Orders 09/14/20 17:52 Peripheral IV Insertion Adult [OM.PC] Routine 09/14/20 17:53 Peripheral IV Care [RC] . DIRECTED Sodium Chloride 0.9% [Normal Saline] 1,000 ml IV ONETIME Sodium Chloride 0.9% [Saline Flush] 10 ml FLUSH ASDIRECTED PRN - Assessment/Plan Last 24 Hours: My Active Orders 09/14/20 17:52 Peripheral IV Insertion Adult [OM.PC] Routine 09/14/20 17:53 Peripheral IV Care [RC] . DIRECTED Sodium Chloride 0.9% [Normal Saline] 1,000 ml IV ONETIME Sodium Chloride 0.9% [Saline Flush] 10 ml FLUSH ASDIRECTED PRN
== END 2020-09-14 18:45 ==
LOC: JD.ED 17:46
DX: R07.89 Other chest pain (principal); R06.02 Shortness of breath; D84.821 Immunodeficiency due to drugs; T45.1X5A Adverse effect of antineoplastic and immunosuppressive drugs, initial encounter; Z88.2 Allergy status to sulfonamides; Z88.8 Allergy status to other drugs, medicaments and biological substances; Z88.5 Allergy status to narcotic agent
CPT/HCPCS: 99285; J7030

== ENCOUNTER 2020-12-11 23:11 | Emergency (ER) | payer OTHER ==
[2020-12-11 23:27] VITALS: BP 154/112; PULSE 76
[2020-12-11] MEDS ORDERED: Ondansetron 4 MG/2 ML SDV IVPUSH ONE (23:44)
[2020-12-11] MEDS ORDERED: HYDROmorphone 0.5 MG/0.5 ML Syringe IVPUSH ONE (23:44)
[2020-12-11] MEDS ORDERED: Sodium Chloride 0.9% 1,000 ML IV SCH (23:45)
--- NOTE | 2020-12-11 23:50 | EDM.PDOC ---
ED HPI GENERAL MEDICAL PROBLEM - General Chief Complaint: Abdominal Pain Stated Complaint: BACK AND LT SIDE PAIN Time Seen by Provider: 12/11/20 23:22 Source of Information: Reports: Patient History Limitations: Reports: No Limitations - History of Present Illness INITIAL COMMENTS - FREE TEXT/NARRATIVE: Mrs. Ji is a very pleasant 35-year-old woman who now presents the ED s tating that she developed burning/sharp left upper quadrant abdominal pain radiating through to her back, associated with nausea, yesterday, 12/10/2020. The pain has been waxing and waning. It is made better if she sits up or bends forward, but made worse if she takes a deep breath. She says she has taken Tylenol to treat her discomfort. The patient reports having yellow watery stools for the past 2 years that she states is related to her focal segmental glomerulosclerosis (FSGS). She is on tacrolimus and CellCept. She also reports that a CT angiogram of her chest revealed a gallstone about 2 months ago. Here in the ED, the patient's initial BP is found to be modestly elevated at 154/112, otherwise, she is hemodynamically stable, afebrile, saturating 96% on room air. She appears to be comfortable, in no acute distress. Prior to yesterday, the patient denies having a recent fever, chills, sore throat, ear pain, nasal or sinus congestion, cough, dyspnea, chest pain, pal pitations, nausea, vomiting, constipation, diarrhea, abdominal pain, urinary symptoms, recent weight gain or weight loss, recent bloody bowel movements or black bowel movements, recent joint aches, headaches, or rashes. The patient's PCP is Autumn Alba NP. Her Civil Preparedness Training Officer is Dr. Mina Whitten. Her Busperson is Dr. Alex Michael. Left Upper Abdomen Pain Score (Numeric/FACES): 7 - Related Data Allergies Allergy/AdvReac Type Severity Reaction Status Date / Time citalopram Allergy Cannot Verified 12/11/20 23:19 Remember hydrochlorothiazide Allergy Cannot Verified 12/11/20 23:19 Remember lisinopril Allergy Cannot Verified 12/11/20 23:19 Remember Sulfa (Sulfonamide Allergy Cannot Verified 12/11/20 23:19 Antibiotics) Remember Home Meds: Home Meds amLODIPine [Norvasc] 5 mg PO DAILY 02/27/19 [History] Ondansetron [Zofran] 4 mg BUCCAL Q6H PRN #5 tab 05/25/19 [Rx] Losartan Potassium 100 mg PO DAILY 12/11/20 [History] Pravastatin [Pravachol] 20 mg PO DAILY 12/11/20 [History] Tacrolimus 1 mg PO ASDIRECTED 12/11/20 [History] Torsemide [Demadex] 20 mg PO DAILY 12/11/20 [History] mycophenolate mofetiL [Mycophenolate Mofetil] 250 mg PO BID 12/11/20 [History] Past Medical History Cardiovascular History: Reports: High Cholesterol, Hypertension Genitourinary History: Reports: Renal Disease (Focal segmental glomerulosclerosis (FSGS)) Psychiatric History: Reports: Anxiety (untreated) Endocrine/Metabolic History: Reports: Obesity/BMI 30+ Immunologic History: Reports: Immunosuppression (Tacrolimus + CellCept) - Past Surgical History HEENT Surgical History: Reports: Oral Surgery (dental extractions), Tonsillectomy GI Surgical History: Reports: Appendectomy Female Surgical History: Reports: Other (See Below) (Kidney biopsy) Social & Family History - Tobacco Use Tobacco Use Status *Q: Never Tobacco User - Caffeine Use Caffeine Use: Reports: None - Alcohol Use Alcohol Use History: No - Recreational Drug Use Recreational Drug Use: No - Living Situation & Occupation Living situation: Reports: , with Spouse, with Family (3 kids) Occupation: Unemployed ED ROS GENERAL - Review of Systems Review Of Systems: Comprehensive ROS is negative, except as noted in HPI. GI/Abdominal: Reports: Diarrhea (chronic) ED EXAM, GENERAL - Physical Exam Exam: See Below Exam Limited By: No Limitations General Appearance: Alert, WD/WN, No Apparent Distress Eye Exam: Bilateral Eye: EOMI, Normal Inspection Ears: Normal External Exam, Hearing Grossly Normal Nose: Normal Inspection Throat/Mouth: Normal Inspection, Normal Lips, Normal Voice, No Airway Compromise Head: Atraumatic, Normocephalic Neck: Normal Inspection, Full Range of Motion Respiratory/Chest: No Respiratory Distress, Lungs Clear, Normal Breath Sounds, No Accessory Muscle Use Cardiovascular: Normal Peripheral Pulses, Regular Rate, Rhythm, No Gallop, No JVD, No Murmur, No Rub Peripheral Pulses: 3+: Radial (L), Radial (R) GI/Abdominal: Normal Bowel Sounds, Soft, Non-Tender (including in the LUQ), No Organomegaly, No Distention, No Abnormal Bruit, No Mass Back Exam: Normal Inspection, Full Range of Motion. No: CVA Tenderness (L), CVA Tenderness (R) Extremities: Normal Inspection, Normal Range of Motion, Normal Capillary Refill Neurological: Alert, Oriented, Normal Cognition, No Motor/Sensory Deficits Psychiatric: Normal Affect Skin Exam: Warm, Dry, Intact, Normal Color, No Rash Course - Vital Signs Last Recorded V/S: Last Vital Signs Temp 36.5 C 12/11/20 23:25 Pulse 76 12/11/20 23:25 Resp 16 12/11/20 23:25 BP 154/112 H 12/11/20 23:25 Pulse Ox 96 12/11/20 23:25 - Orders/Labs/Meds Orders: Active Orders 24 hr Category Date Time Status Abdomen Pelvis wo Cont [CT] Stat Exams 12/11/20 23:43 Taken Magnesium Sulfate/Water [Magnesium Sulfate in Water 2 Med 12/12/20 00:47 Active GM/50 ML] 2 gm Premix Bag 1 bag IV ONETIME Sodium Chloride 0.9% [Normal Saline] 1,000 ml Med 12/11/20 23:45 Active IV ASDIRECTED Medication Orders Sodium Chloride (Normal Saline) 1,000 mls @ 150 mls/hr IV ASDIRECTED BIRDIE Last Admin: 12/11/20 23:59 Dose: 150 mls/hr Documented by: ANNETTE Magnesium Sulfate 2 gm/ Premix 50 mls @ 25 mls/hr IV ONETIME ONE Stop: 12/12/20 02:46 Last Admin: 12/12/20 00:57 Dose: 25 mls/hr Documented by: ANNETTE Labs: Laboratory Tests 12/11/20 12/11/20 12/11/20 Range/Units 23:50 23:50 23:56 WBC 13.27 H (3.98-10.04) K/mm3 RBC 4.75 (3.98-5.22) M/mm3 Hgb 15.0 (11.2-15.7) gm/dl Hct 41.8 (34.1-44.9) % MCV 88.0 (79.4-94.8) fl MCH 31.6 (25.6-32.2) pg MCHC 35.9 H (32.2-35.5) g/dl RDW Std Deviation 41.3 (36.4-46.3) fL Plt Count 497 H D (182-369) K/mm3 MPV 9.5 (9.4-12.3) fl Neutrophils % (Manual) 54 (40-60) % Band Neutrophils % 0 (0-10) % Lymphocytes % (Manual) 37 (20-40) % Atypical Lymphs % 0 % Monocytes % (Manual) 7 (2-10) % Eosinophils % (Manual) 1 (0.7-5.8) % Basophils % (Manual) 1 (0.1-1.2) Platelet Estimate Increased RBC Morph Comment Normal Sodium (136-145) mEq/L Potassium (3.5-5.1) mEq/L Chloride (98-107) mEq/L Carbon Dioxide (21-32) mEq/L Anion Gap (5-15) BUN (7-18) mg/dL Creatinine (0.55-1.02) mg/dL Est Cr Clr Drug Dosing mL/min Estimated GFR (MDRD) (>60) mL/min BUN/Creatinine Ratio (14-18) Glucose (70-99) mg/dL Calcium (8.5-10.1) mg/dL Magnesium (1.8-2.4) mg/dL Total Bilirubin (0.2-1.0) mg/dL AST (15-37) U/L ALT (14-59) U/L Alkaline Phosphatase (46-116) U/L Total Protein (6.4-8.2) g/dl Albumin (3.4-5.0) g/dl Globulin gm/dL Albumin/Globulin Ratio (1-2) Lipase (73-393) U/L Urine Color Yellow (Yellow) Urine Appearance Slt cloudy H (Clear) Urine pH 6.5 (5.0-8.0) Ur Specific [place] 1.020 (1.005-1.030) Urine Protein 3+ H (Negative) Urine Glucose (UA) Negative (Negative) Urine Ketones Negative (Negative) Urine Occult Blood Trace-lysed H (Negative) Urine Nitrite Negative (Negative) Urine Bilirubin Negative (Negative) Urine Urobilinogen 0.2 (0.2-1.0) Ur Leukocyte Esterase Negative (Negative) Urine RBC 0-5 (0-5) /hpf Urine WBC 0-5 (0-5) /hpf Ur Squamous Epith Cells 0-5 (0-5) /hpf Urine Bacteria Moderate H (FEW) /hpf Urine Mucus Not seen (FEW) /hpf Urine HCG, Qual Negative (NEGATIVE) 12/11/20 Range/Units 23:56 WBC (3.98-10.04) K/mm3 RBC (3.98-5.22) M/mm3 Hgb (11.2-15.7) gm/dl Hct (34.1-44.9) % MCV (79.4-94.8) fl MCH (25.6-32.2) pg MCHC (32.2-35.5) g/dl RDW Std Deviation (36.4-46.3) fL Plt Count (182-369) K/mm3 MPV (9.4-12.3) fl Neutrophils % (Manual) (40-60) % Band Neutrophils % (0-10) % Lymphocytes % (Manual) (20-40) % Atypical Lymphs % % Monocytes % (Manual) (2-10) % Eosinophils % (Manual) (0.7-5.8) % Basophils % (Manual) (0.1-1.2) Platelet Estimate RBC Morph Comment Sodium 140 (136-145) mEq/L Potassium 4.0 (3.5-5.1) mEq/L Chloride 107 (98-107) mEq/L Carbon Dioxide 26 (21-32) mEq/L Anion Gap 11.0 (5-15) BUN 20 H (7-18) mg/dL Creatinine 1.1 H (0.55-1.02) mg/dL Est Cr Clr Drug Dosing 68.75 mL/min Estimated GFR (MDRD) 56 (>60) mL/min BUN/Creatinine Ratio 18.2 H (14-18) Glucose 119 H (70-99) mg/dL Calcium 8.6 (8.5-10.1) mg/dL Magnesium 1.6 L (1.8-2.4) mg/dL Total Bilirubin 0.3 (0.2-1.0) mg/dL AST 16 (15-37) U/L ALT 19 (14-59) U/L Alkaline Phosphatase 70 (46-116) U/L Total Protein 6.2 L (6.4-8.2) g/dl Albumin 2.2 L (3.4-5.0) g/dl Globulin 4.0 gm/dL Albumin/Globulin Ratio 0.6 L (1-2) Lipase 158 (73-393) U/L Urine Color (Yellow) Urine Appearance (Clear) Urine pH (5.0-8.0) Ur Specific [place] (1.005-1.030) Urine Protein (Negative) Urine Glucose (UA) (Negative) Urine Ketones (Negative) Urine Occult Blood (Negative) Urine Nitrite (Negative) Urine Bilirubin (Negative) Urine Urobilinogen (0.2-1.0) Ur Leukocyte Esterase (Negative) Urine RBC (0-5) /hpf Urine WBC (0-5) /hpf Ur Squamous Epith Cells (0-5) /hpf Urine Bacteria (FEW) /hpf Urine Mucus (FEW) /hpf Urine HCG, Qual (NEGATIVE) Meds: Medications Generic Name Dose Route Start Last Admin Trade Name Freq PRN Reason Stop Dose Admin Sodium Chloride 1,000 mls @ 150 mls/hr 12/11/20 23:45 12/11/20 23:59 Normal Saline IV 150 mls/hr ASDIRECTED BIRDIE Administration Magnesium Sulfate 2 gm/ Premix 50 mls @ 25 mls/hr 12/12/20 00:47 12/12/20 00:57 IV 12/12/20 02:46 25 mls/hr ONETIME ONE Administration Discontinued Medications Generic Name Dose Route Start Last Admin Trade Name Freq PRN Reason Stop Dose Admin Hydromorphone HCl 0.5 mg 12/11/20 23:44 12/11/20 23:59 Hydromorphone 0.5 Mg/0.5 Ml Syringe IVPUSH 12/11/20 23:45 0.5 mg ONETIME ONE Administration Ondansetron HCl 4 mg 12/11/20 23:44 12/11/20 23:59 Ondansetron 4 Mg/2 Ml Sdv IVPUSH 12/11/20 23:45 4 mg ONETIME ONE Administration - Re-Assessments/Exams Free Text/Narrative Re-Assessment/Exam: 12/11/20 23:45 As above, the patient, who has focal segmental glomerulosclerosis (FSGS), and who has had watery stools for approximately 2 years, now presents the ED stating that she developed burning/sharp left upper quadrant abdominal pain radiating through to her left flank since yesterday, associated with nausea. The pain has been waxing and waning, feeling better if she is sitting up or bending forward while standing, worse with a deep breath. On physical exam, she has neither tenderness to her left upper quadrant nor left CVA tenderness. The etiology of her pain is not immediately obvious, although I suppose that a kidney stone could present this way. To my knowledge, FSGS does not increase the risk of kidney stones. I have ordered a work-up that includes several blood tests, a urinalysis, a urine test, and a CT of the abdomen and pelvis without contrast. In the meantime, the patient will be given IV Dilaudid, IV Zofran, and IV fluid. 12/12/20 00:48 The patient's CMP is remarkable for mild hyperglycemia of 119, and is otherwise unremarkable. Her magnesium level is mildly depressed at 1.6. Her lipase level is within normal limits at 158. Her urine test is negative. The patient's CBC, urinalysis, and results of the CT of the abdomen and pelvis are still pending. Based on the above, I have ordered a 2 g Mg-rider. 12/12/20 01:16 The patient's CBC is remarkable for modest leukocytosis of 13.27, but with 0% bandemia, and thrombocytosis of 497,000, with the remainder of her CBC being unremarkable. Her urinalysis is unremarkable. 12/12/20 01:22 CT of the abdomen and pelvis without contrast is read by [facility] as: 1. Single stone in the gallbladder with mild pericholecystic edema, concerning for acute cholecystitis.. 2. Bilateral pleural-based pulmonary nodules, the largest measuring 5 mm. For patients at low risk (minimal or absent history of smoking and of other known risk factors), no routine follow-up is indicated. For patients at high risk (history of smoking or of other known risk factors), consider optional CT Chest at 12 months. (Reference: Missy) 12/12/20 01:28 Test results discussed with the patient. As above, today's work-up is grossly unremarkable. The CT scan finds cholelithiasis with mild pericholecystic edema, concerning for cholecystitis, however, the patient's pain is on her left upper quadrant, not her right upper quadrant he has no abdominal tenderness, including her right upper quadrant. I recommended referral to Dr. Moser for further evaluation, which might include an ultrasound of the right upper quadrant and a HIDA scan. The patient agreed. With respect to the CT finding of bilateral pleural-based pulmonary nodules, the patient has never smoked, and therefore no follow-up is needed. The patient will be discharged home after her Mg-rider has finished infusing. Departure - Departure Time of Disposition: 01:30 Disposition: Home, Self-Care 01 Condition: Good Clinical Impression: Left upper quadrant abdominal pain of unknown etiology, Nausea - Discharge Information *PRESCRIPTION DRUG MONITORING PROGRAM REVIEWED*: Not Applicable *COPY OF PRESCRIPTION DRUG MONITORING REPORT IN PATIENT ANJELICA: Not Applicable Instructions: Abdominal Pain, Adult, [id number], Nausea, Adult, [id number] Referrals: Autumn Alba NP [Primary Care Provider] - Juanita Moser MD [Physician] - Forms: ED Department Discharge Additional Instructions: You were seen in the emergency room for upper left abdominal pain radiating through to your left back, with nausea, since yesterday. Work-up in the ER included several blood tests, a urinalysis, a urine test, and a CT of your abdomen and pelvis with oral and IV contrast. The CT scan read-demonstrated a gallstone, however, your gallbladder is located in your upper right abdomen, not your upper left abdomen, therefore acute cholecystitis is not likely. Your magnesium level was found to be mildly depressed at 1.6. You were given IV magnesium replacement in the ER. The remainder of your work-up was unremarkable, it does not explain the cause of your pain. We recommend that you follow-up with the Surgeon Dr. Juanita Moser. Please call his office in the morning to make an appointment to be seen. If any other problems, please do not hesitate to return to the ER. Sepsis Event Note (ED) - Evaluation Sepsis Screening Result: No Definite Risk - Focused Exam Vital Signs: Vital Signs Temp Pulse Resp BP Pulse Ox 12/11/20 23:25 36.5 C 76 16 154/112 H 96 - My Orders Last 24 Hours: My Active Orders 12/11/20 23:43 Abdomen Pelvis wo Cont [CT] Stat 12/11/20 23:45 Sodium Chloride 0.9% [Normal Saline] 1,000 ml IV ASDIRECTED 12/12/20 00:47 Magnesium Sulfate/Water [Magnesium Sulfate in Water 2 GM/50 ML] 2 gm Premix Bag 1 bag IV ONETIME - Assessment/Plan Last 24 Hours: My Active Orders 12/11/20 23:43 Abdomen Pelvis wo Cont [CT] Stat 12/11/20 23:45 Sodium Chloride 0.9% [Normal Saline] 1,000 ml IV ASDIRECTED 12/12/20 00:47 Magnesium Sulfate/Water [Magnesium Sulfate in Water 2 GM/50 ML] 2 gm Premix Bag 1 bag IV ONETIME
[2020-12-12] MEDS ORDERED: Magnesium Sulfate/Water 2 GM in Premix Bag 1 BAG IV ONE (00:47)
--- NOTE | 2020-12-12 08:17 | CT ---
CT abdomen and pelvis Technique: Multiple axial sections were obtained from above the dome of the diaphragm inferiorly to the pubic symphysis. Intravenous and oral contrast were not utilized. Study has been performed as a ureteral stone protocol. Comparison: Prior renal ultrasound exam of 02/27/19. Findings: Small nodule is seen within a subpleural location within each lung base. On the right side a small nodule measures 4 mm and on the left side this nodule measures about 3.8 mm. Liver contains no focal abnormality. Gallbladder shows a small calcified gallstone. Minimal edema is suggested around the gallbladder. Spleen size is within normal limits. Adrenal gland shows no nodule. Pancreas appears within normal limits. Kidneys show no abnormal calcifications. No ureteral dilatation or ureteral calculus is seen. Abdominal aorta shows no aneurysm. Small retroperitoneal lymph nodes are seen which are felt to be within normal limits. No mesenteric abnormalities are seen. Surgical material is seen off the cecum presumably from prior appendectomy. Small cyst is noted within the right ovary measuring 2.2 cm. Cyst is believed to be physiologic. IUD is noted. On the sagittal reconstructed images the IUD appears slightly low in position with inferior end minimally projecting into the cervical canal. No pelvic mass or adenopathy is seen. No free fluid or inflammatory change is otherwise seen. Bone window settings were reviewed. Degenerative change is noted within both sacroiliac joints with vacuum phenomena in what is felt to be degenerative sclerosis. No acute osseous abnormality is appreciated. Impression: 1. Small calcified gallstone within the gallbladder. Questionable inflammatory change around the gallbladder. Please correlate if patient has any gallbladder symptoms. 2. Small nodule within each lung base. If patient is a smoker, recommend follow-up CT study of the chest without contrast in one year. If patient is not a smoker, no further follow-up is felt to be needed. 3. Slightly low position of the IUD with inferior end appearing to slightly project into the cervical canal. 4. Other findings as noted above which are nonacute. No renal calculi, ureteral dilatation or ureteral stone is seen. Diagnostic code #3 I agree with preliminary report from [facility], finalized on 12/12/20, 2:20 AM CDT, code 1
== END 2020-12-12 02:50 | disposition home or self-care (01) ==
LOC: JD.ED 23:11
DX: R10.12 Left upper quadrant pain (principal); R11.0 Nausea; E78.00 Pure hypercholesterolemia, unspecified; I10 Essential (primary) hypertension; E66.9 Obesity, unspecified; Z68.41 Body mass index [BMI] 40.0-44.9, adult; Z88.8 Allergy status to other drugs, medicaments and biological substances; Z88.2 Allergy status to sulfonamides; Z79.899 Other long term (current) drug therapy
CPT/HCPCS: 36415; 74176; 80053; 81001; 81025; 83690; 83735; 85007; 85027; 96365; 96366; 96375; 99284; J1170; J2405; J3475; J7030

== ENCOUNTER 2020-12-19 07:51 | Day surgery (SDC) | payer OTHER ==
[~2020-12-19 07:51] MED LIST: Albuterol 0.083% 2.5 MG/3 ML Neb Soln NEB PRN; Lactated Ringers 1,000 ML IV SCH; Lidocaine 1%/Sod Bicarbonate in NS 8.4% 1 ML Syringe IDERM PRN; Sodium Chloride 0.9% 10 ML Syringe FLUSH PRN
--- NOTE | 2020-12-19 08:43 | PCM.PREANE ---
Preanesthetic Assessment - Procedure Proposed Procedure: diag egd - Anesthesia/Transfusion/Family Hx Type of Anesthesia Reaction: Other (see below) (wakes up pukey) Family History of Anesthesia Reaction: No Transfusion History: No Prior Transfusion(s) - Review of Systems General: No Symptoms Pulmonary: No Symptoms Cardiovascular: No Symptoms Gastrointestinal: Abdominal Pain, Diarrhea Neurological: No Symptoms Other: Reports: None - Physical Assessment NPO Status Date: 12/18/20 NPO Status Time: 21:00 Vital Signs: Last Vital Signs Temp 97.3 F 12/19/20 08:00 Pulse 68 12/19/20 08:00 Resp 16 12/19/20 08:00 BP 135/68 12/19/20 08:00 Pulse Ox 99 12/19/20 08:00 Height: 5 ft 7 in Weight: 122.515 kg ASA Class: 3 Mental Status: Alert & Oriented x3 Airway Class: Mallampati = 1 Dentition: Reports: Normal Dentition Thyro-Mental Finger Breadths: 3 Mouth Opening Finger Breadths: 3 ROM/Head Extension: Full Lungs: Clear to Auscultation, Normal Respiratory Effort Cardiovascular: Regular Rate, Regular Rhythm - Lab Values: Laboratory Last Values Urine HCG, Qual Negative (NEGATIVE) 12/19/20 08:05 - Allergies Allergies/Adverse Reactions: Allergies Allergy/AdvReac Type Severity Reaction Status Date / Time citalopram Allergy Cannot Verified 12/16/20 09:28 Remember egg Allergy Cannot Verified 12/16/20 09:28 Remember hydrochlorothiazide Allergy Cannot Verified 12/16/20 09:28 [From Zestoretic] Remember lisinopril [From Zestoretic] Allergy Cannot Verified 12/16/20 09:28 Remember Sulfa (Sulfonamide Allergy Cannot Verified 12/16/20 09:28 Antibiotics) Remember - Blood Blood Available: No - Anesthesia Plan Beta Ambika: Atenolol Med Last Dose Date: 12/18/20 Med Last Dose Time: 20:00 - Acknowledgements Anesthesia Type Planned: MAC Pt an Appropriate Candidate for the Planned Anesthesia: Yes Alternatives and Risks of Anesthesia Discussed w Pt/Guardian: Yes Pt/Guardian Understands and Agrees with Anesthesia Plan: Yes PreAnesthesia Questionnaire HEENT History: Reports: Impaired Vision Cardiovascular History: Reports: High Cholesterol, Hypertension Other Cardiovascular History: Periods of tachycardia and chest pain with unknown origin. Respiratory History: Reports: None Gastrointestinal History: Reports: Other (See Below) Genitourinary History: Reports: Renal Disease Other Genitourinary History: FSGS--focal segmental glomerular sclerosis--was diagnosed in February of last year by renal biopsy. ROLLER CHECKER History: Reports: Other OB/BYN History: PIH current , transient proteinuria Musculoskeletal History: Reports: None Neurological History: Reports: None Psychiatric History: Reports: Anxiety Endocrine/Metabolic History: Reports: Obesity/BMI 30+ Hematologic History: Reports: Polycythemia Immunologic History: Reports: Immunosuppression Oncologic (Cancer) History: Reports: None Dermatologic History: Reports: Other (See Below) Other Dermatologic History: Cysts removed - Past Surgical History Head Surgeries/Procedures: Reports: None HEENT Surgical History: Reports: Oral Surgery, Tonsillectomy Other HEENT Surgeries/Procedures: Widson teeth removed Cardiovascular Surgical History: Reports: None Respiratory Surgical History: Reports: None GI Surgical History: Reports: Appendectomy Female Surgical History: Reports: Breast Biopsy, Other (See Below) (kidney biopsy) Endocrine Surgical History: Reports: None Neurological Surgical History: Reports: None Musculoskeletal Surgical History: Reports: None Oncologic Surgical History: Reports: None - SUBSTANCE USE Tobacco Use Status *Q: Never Tobacco User Tobacco Use Within Last Twelve Months: No Second Hand Smoke Exposure: No Days Per Week of Alcohol Use: 0 Recreational Drug Use History: No - HOME MEDS Home Medications: Home Meds amLODIPine [Norvasc] 5 mg PO DAILY 02/27/19 [History] Ondansetron [Zofran] 4 mg BUCCAL Q6H PRN #5 tab 05/25/19 [Rx] Losartan Potassium 100 mg PO DAILY 12/11/20 [History] Pravastatin [Pravachol] 20 mg PO DAILY 12/11/20 [History] Tacrolimus 1 mg PO ASDIRECTED 12/11/20 [History] Torsemide [Demadex] 20 mg PO DAILY 12/11/20 [History] mycophenolate mofetiL [Mycophenolate Mofetil] 250 mg PO BID 12/11/20 [History] Magnesium Chloride [Slow-Mag] 71.5 mg PO DAILY 12/16/20 [History] atenoloL [Atenolol] 50 mg PO DAILY 12/16/20 [History] - CURRENT (IN HOUSE) MEDS Current Meds: Current Medications Albuterol (Albuterol 0.083% 2.5 Mg/3 Ml Neb Soln) 2.5 mg NEB ONETIME PRN PRN Reason: morbid obesity/egd Stop: 12/19/20 18:00 Lactated Ringer's (Ringers, Lactated) 1,000 mls @ 125 mls/hr IV ASDIRECTED BIRDIE Stop: 12/19/20 23:00 Lidocaine/Sodium Bicarbonate (Lidocaine 1%/Sod Bicarbonate In Ns 8.4% 1 Ml Syringe) 0.25 ml IDERM ONETIME PRN PRN Reason: Prior to IV Start Stop: 12/19/20 18:00 Sodium Chloride (Sodium Chloride 0.9% 10 Ml Syringe) 10 ml FLUSH ASDIRECTED PRN PRN Reason: Keep Vein Open Stop: 12/19/20 18:00
[2020-12-19] MEDS ORDERED: Propofol 200 MG/20 ML SDV ONE ×2 (08:52→09:55)
[2020-12-19] MEDS ORDERED: Lidocaine 1% 6 ML ONE (08:52)
[2020-12-19] MEDS ORDERED: Midazolam 1 MG/ML 2 ML SDV ONE (09:13)
--- NOTE | 2020-12-19 10:40 | PCM48HPAN ---
Post Anesthesia Note - EVALUATION WITHIN 48HRS OF ANESTHETIC Vital Signs in Normal Range: Yes Patient Participated in Evaluation: Yes Respiratory Function Stable: Yes Airway Patent: Yes Cardiovascular Function Stable: Yes Hydration Status Stable: Yes Pain Control Satisfactory: Yes Nausea and Vomiting Control Satisfactory: Yes Mental Status Recovered: Yes Vital Signs: Last Vital Signs Temp 98.4 F 12/19/20 10:11 Pulse 60 12/19/20 10:25 Resp 18 12/19/20 10:25 BP 114/70 12/19/20 10:25 Pulse Ox 99 12/19/20 10:25
--- NOTE | 2020-12-19 10:54 | PROC ---
DATE OF OPERATION: 12/19/2020 SURGEON: Juanita Moser MD PREOPERATIVE DIAGNOSIS: Left upper quadrant and epigastric pain. POSTOPERATIVE DIAGNOSES: Normal esophagus, normal stomach. OPERATION PERFORMED: Esophagogastroduodenoscopy. ANESTHESIA: Monitored anesthesia care. ESTIMATED BLOOD LOSS: Minimal. INDICATION AND CONSENT: The patient is 35-year-old female who started having left epigastric and left abdominal pain radiating to lower back. A couple of weeks ago, the patient went to the emergency department, where white count was 13. CT scan showed signs of edematous around the gallbladder along with maybe a small stone in the gallbladder neck. However, the patient did not at the point of presentation have right upper quadrant pain. The patient was sent to my clinic. In my clinic, the patient did voice a concern for right-sided abdominal pain that was radiating towards the left side and lower back. However, this pain was very nonspecific. The patient still continued to have this pain today, mostly in the right upper quadrant, left upper quadrant, and lower back as well. The pain is mostly after eating. Therefore, because of the nonspecificity of the pain with the gallbladder, we decided to pursue an EGD to rule out any PUD before focusing on the gallbladder, for which patient presents today. We discussed risks, benefits, and alternatives, and informed consent was obtained. DETAILS OF THE PROCEDURE: The patient was taken to the procedure room, placed in left later decubitus position. A time-out was performed. Monitored anesthesia care was induced. Then, we began scope with an EGD placed into the mouth and taken all the way down to the second portion of the duodenum, which appeared normal. We took some biopsies at the second portion of duodenum as well as the stomach antrum to rule out any other submucosal causes and H pylori. On retroflexion, there was no hiatal hernia in the distal esophagus which appeared to be normal. At this point, air was suctioned out and procedure was concluded. The patient will be allowed to go home and return in 1 week for further discussion. MMODAL /[id number] ROSALIE
[2020-12-19 13:38] VITALS: BP 138/73; PULSE 62
== END 2020-12-19 10:57 | disposition home or self-care (01) ==
LOC: JD.SDS 07:51
PROVIDERS: ATTEND Surgery
DX: K31.89 Other diseases of stomach and duodenum (principal); I89.0 Lymphedema, not elsewhere classified; I78.1 Nevus, non-neoplastic; E78.5 Hyperlipidemia, unspecified; I10 Essential (primary) hypertension; E66.01 Morbid (severe) obesity due to excess calories; E78.00 Pure hypercholesterolemia, unspecified; Z88.2 Allergy status to sulfonamides; Z91.012 Allergy to eggs; Z88.8 Allergy status to other drugs, medicaments and biological substances; Z68.42 Body mass index [BMI] 45.0-49.9, adult
CPT/HCPCS: 43239; 81025; J2250; J2704; J7120; 00731

== ENCOUNTER 2021-02-22 07:03 | Day surgery (SDC) | payer OTHER ==
[~2021-02-22 07:03] MED LIST changes: -Albuterol 0.083% 2.5 MG/3 ML Neb Soln NEB PRN; +Scopolamine 1.5 MG Transdermal Patch TRDERM PRN; +Sodium Chloride 0.9% 1,000 ML IV SCH
--- NOTE | 2021-02-22 07:15 | PCM.PREANE ---
Preanesthetic Assessment - Procedure Proposed Procedure: Laparoscopic assisted vaginal hysterectomy - Anesthesia/Transfusion/Family Hx Anesthesia History: Prior Anesthesia Reaction Type of Anesthesia Reaction: Excessive Nausea/Vomiting Family History of Anesthesia Reaction: No Transfusion History: No Prior Transfusion(s) Intubation History: Unknown - Review of Systems General: No Symptoms Pulmonary: No Symptoms Cardiovascular: No Symptoms Gastrointestinal: No Symptoms Neurological: No Symptoms Other: Reports: Anxiety - Physical Assessment NPO Status Date: 02/21/21 NPO Status Time: 21:00 Vital Signs: 144/91 42 98.7 18 96% Height: 1.7 m Weight: 120.9 kg ASA Class: 3 Mental Status: Alert & Oriented x3 Airway Class: Mallampati = 2 Dentition: Reports: Caries Thyro-Mental Finger Breadths: 3 Mouth Opening Finger Breadths: 3 ROM/Head Extension: Full Lungs: Clear to Auscultation, Normal Respiratory Effort, Decreased Breath Sounds Cardiovascular: Regular Rate, Regular Rhythm, No Murmurs - Lab Values: Awaiting for lab results - Imaging/EKG Impressions: EKG ST 104 - Allergies Allergies/Adverse Reactions: Allergies Allergy/AdvReac Type Severity Reaction Status Date / Time citalopram Allergy Cannot Verified 02/21/21 12:35 Remember egg Allergy Cannot Verified 02/21/21 12:35 Remember hydrochlorothiazide Allergy Cannot Verified 02/21/21 12:35 [From Zestoretic] Remember lisinopril [From Zestoretic] Allergy Cannot Verified 02/21/21 12:35 Remember Sulfa (Sulfonamide Allergy Cannot Verified 02/21/21 12:35 Antibiotics) Remember - Blood Blood Available: Yes Product(s) Available: PRBC - Anesthesia Plan Beta Ambika: Atenolol Med Last Dose Date: 02/21/21 Med Last Dose Time: 20:00 - Acknowledgements Anesthesia Type Planned: General Anesthesia Pt an Appropriate Candidate for the Planned Anesthesia: Yes Alternatives and Risks of Anesthesia Discussed w Pt/Guardian: Yes Pt/Guardian Understands and Agrees with Anesthesia Plan: Yes PreAnesthesia Questionnaire HEENT History: Reports: Impaired Vision Cardiovascular History: Reports: High Cholesterol, Hypertension Other Cardiovascular History: Periods of tachycardia and chest pain with unknown origin (patient has not had since 2019) Respiratory History: Reports: Other (See Below) (Sinus infection 2 weeks ago, placed on antibiotics and no current symptoms) Gastrointestinal History: Reports: None Genitourinary History: Reports: Renal Disease Other Genitourinary History: 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): Other (See Below) (abnormal uterine bleeding) Musculoskeletal History: Reports: None Neurological History: Reports: None Psychiatric History: Reports: Anxiety Endocrine/Metabolic History: Reports: Obesity/BMI 30+ Hematologic History: Reports: Polycythemia Immunologic History: Reports: Immunosuppression Oncologic (Cancer) History: Reports: None Dermatologic History: Reports: Other (See Below) Other Dermatologic History: Cysts removed - Infectious Disease History Infectious Disease History: Reports: None - Past Surgical History Head Surgeries/Procedures: Reports: None HEENT Surgical History: Reports: Oral Surgery, Tonsillectomy Other HEENT Surgeries/Procedures: Polo teeth removed Cardiovascular Surgical History: Reports: None Respiratory Surgical History: Reports: None GI Surgical History: Reports: Appendectomy, EGD Female Surgical History: Reports: Breast Biopsy, Other (See Below) Endocrine Surgical History: Reports: None Neurological Surgical History: Reports: None Musculoskeletal Surgical History: Reports: None Oncologic Surgical History: Reports: None Dermatological Surgical History: Reports: Other (See Below) Other Dermatological Surgeries/Procedures: Kidney biopsy - SUBSTANCE USE Tobacco Use Status *Q: Never Tobacco User Tobacco Use Within Last Twelve Months: No Second Hand Smoke Exposure: No Days Per Week of Alcohol Use: 0 Number of Drinks Per Day: 0 Total Drinks Per Week: 0 Recreational Drug Use History: No - HOME MEDS Home Medications: Home Meds amLODIPine [Norvasc] 5 mg PO DAILY 02/27/19 [History] Ondansetron [Zofran] 4 mg BUCCAL Q6H PRN #5 tab 05/25/19 [Rx] Losartan Potassium 100 mg PO DAILY 12/11/20 [History] Pravastatin [Pravachol] 20 mg PO DAILY 12/11/20 [History] Tacrolimus 3 mg PO QAM 12/11/20 [History] Torsemide [Demadex] 20 mg PO DAILY 12/11/20 [History] mycophenolate mofetiL [Mycophenolate Mofetil] 250 mg PO QAM 12/11/20 [History] atenoloL [Atenolol] 50 mg PO DAILY 12/16/20 [History] Multivitamin 1 tab PO DAILY 02/21/21 [History] Tacrolimus [Prograf] 2 mg PO QPM 02/21/21 [History] mycophenolate mofetiL [Cellcept] 500 mg PO QPM 02/21/21 [History] - CURRENT (IN HOUSE) MEDS Current Meds: Current Medications Sodium Chloride (Normal Saline) 1,000 mls @ 125 mls/hr IV ASDIRECTED BIRDIE Lidocaine/Sodium Bicarbonate (Lidocaine 1%/Sod Bicarbonate In Ns 8.4% 1 Ml Syringe) 0.25 ml IDERM ONETIME PRN PRN Reason: Prior to IV Start Stop: 02/22/21 18:00 Scopolamine (Scopolamine 1.5 Mg Transdermal Patch) 1.5 mg TRDERM ONETIME PRN PRN Reason: PONV Stop: 02/22/21 16:00 Sodium Chloride (Sodium Chloride 0.9% 10 Ml Syringe) 10 ml FLUSH ASDIRECTED PRN PRN Reason: Keep Vein Open Stop: 02/22/21 18:00 Discontinued Medications Lactated Ringer's (Ringers, Lactated) 1,000 mls @ 125 mls/hr IV ASDIRECTED BIRDIE Stop: 02/22/21 23:00
--- NOTE | 2021-02-22 07:34 | PCM.OPNOTE ---
- General Post-Op/Procedure Note Date of Surgery/Procedure: 02/22/21 Operative Procedure(s): Laparoscopic assisted vaginal hysterectomy. Bilateral salpingectomy Findings: Intraabdominal evaluation with boggy appearance to the uterus. Normal appearance of the bilateral fallopian tubes and ovaries Pre Op Diagnosis: Abnormal uterine bleeding - failed medical management. FSGS. 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 BMI of patient Pathology: Cervix, uterus, and bilateral fallopian tubes sent to pathology for further evaluation Fluid Replacement, Intraop: 700 Output, Urine Amount: 90 EBL in mLs: 150 Complications: None Condition: Good Free Text/Narrative:: The risks, benefits, indications, potential complications, and alternatives were explained to the patient and informed consent obtained. The patient was taken to the Operating Room where general anesthesia was induced without complication. The patient was placed in dorsal lithotomy with Martin Stirrups and an exam under anesthesia revealed the findings detailed above. The patient was then prepped and draped in the usual sterile fashion. A sterile bivalve speculum was placed into the vagina and the anterior lip of the cervix was grasped with a single tooth tenaculum and a [employer] uterine manipulator was placed to allow uterine manipulation throughout the procedure. The speculum and single tooth tenaculum were removed from the vagina. A Fontana catheter was placed in sterile fashion. Attention was then turned to the patients abdomen where a Veress needle was ca refully introduced into the peritoneal cavity while tenting the abdominal wall. Intraperitoneal placement was confirmed by free flow of saline into the abdomen from a syringe open to gravity and with a low intraabdominal pressure with insufflation of C02 gas on low flow. The gas was increased to high flow and a pneumoperitoneum was obtained with C02 gas to a pressure of 15 mm Hg. A 5 mm skin incision was made in a vertical fashion in the umbilical fold and a 5 mm blunt trocar was inserted into the abdomen with direct visualization of the laparoscope through the clear view trocar lens. 5 mm skin incisions were made in both the left and right lower quadrants approximately 10 cm lateral and 3 cm inferior to the umbilicus. 5 mm blunt trocars were inserted into the abdomen under direct visualization with care to avoid the abdominal wall vasculature. A blunt probe and grasper were inserted through the accessory ports and a survey of the abdomen revealed the findings detailed above. The right fallopian tube was elevated with the blunt graspers at the fimbriated end. The LigaSure was used to grasp, elevate, cauterize and transect the right mesosalpinx from the fimbriated end toward the uterus and then amputate at the level of the cornua. The fallopian tube was then removed through the 5 mm port. The round ligament on the right was then elevated, cauterized, and transected with the LigaSure. Hemostasis was noted. Next, the vesicouterine peritoneum was elevated gently with a blunt grasper and the LigaSure was used dissect the vesicouterine peritoneum to make a bladder flap. Two more small bites along the right side of the uterus were made with the LigaSure to skeletonize the uterine artery. Slight bleeding was noted with this which was controlled with additional cautery from the LigaSure. The exact same procedure was carried out on the left. The CO2 gas was turned off and the laparoscope was removed. Attention was then turned to the vaginal portion of the procedure. A short weighted speculum was placed in the vagina, and the cervix was grasped with a double-toothed tenaculum. The cervix was injected circumferentially with 10 cc of lidocaine with dilute epinephrine. The cervix was then circumferentially incised with a scalpel. A Raytec was used to bluntly dissect the cervix circumferentially until an avascular plane was obtained. The posterior cul-de-sac was entered sharply without difficulty. A 0-Vicryl pop-off suture was placed at six o'clock to include the posterior vaginal mucosa and posterior peritoneum. This stitch was tagged with a straight clamp to help with vaginal cuff closure at the end of the case. The short weighted speculum was replaced by the long weighted speculum. The uterosacral ligaments were grasped on either side, with the LigaSure, cauterized, and transected. The bladder was dissected off the pubovesical cervical fascia anteriorly with a sponge and blunt dissection. The anterior cul-de-sac was then entered sharply without difficulty. The cardinal ligaments were then serially clamped on both sides with the LigaSure, cauterized, and transected The uterine arteries were then clamped with the LigaSure, cauterized, and transected. Hemostasis was then noted. The fundus and adnexa were confirmed to be free of any further peritoneal attachments and then were pulled out through the vagina. The posterior vaginal cuff was closed with a running, locked suture of 0 Vicryl. Additional figure of eight sutures placed at right apex to control slight bleeding. Next, the vaginal cuff was closed with two separate suture of 0-Vicryl started at either apex and run towards the midline in a locked fashion. Hemostasis was noted. Attention was then again turned to the abdomen. All members of the surgical team changed gloves. The laparoscope was again inserted and the abdomen was again insufflated with CO2. The pedicles were again visualized. Irrigation of the pedicles was performed. Warner seal was placed along the vaginal cuff. Hemostasis was confirmed. The patient was taken out of Trendelenberg position. The accessory trocars were removed under direct visualization. The pneumoperitoneum was allowed to escape. The umbilical trocar was removed and lastly the camera was removed from the abdomen under direct visualization to confirm no herniation into the port site. All skin incisions were re- approximated with 4-0 Monocryl and sealed with Dermabond. Hemostasis was noted. A total of 8 cc of 0.25% Marcaine was injected into the subcutaneous tissues surrounding the skin incisions for local anesthesia. All sponge, lap, needle, and instrument counts were correct x 2. The patient tolerated the procedure well and there were no complications.
[2021-02-22] MEDS ORDERED: Albuterol 0.083% 2.5 MG/3 ML Neb Soln NEB ONE (07:44)
[2021-02-22] MEDS ORDERED: fentaNYL 250 MCG/5 ML SDV ONE (08:00)
[2021-02-22] MEDS ORDERED: Propofol 200 MG/20 ML SDV ONE (08:00)
[2021-02-22] MEDS ORDERED: Midazolam 1 MG/ML 2 ML SDV ONE (08:00)
[2021-02-22] MEDS ORDERED: ceFAZolin 1 GM Vial ONE (08:00)
[2021-02-22] MEDS ORDERED: Rocuronium 50 MG/5 ML Vial ONE (08:01)
[2021-02-22] MEDS ORDERED: Ondansetron 4 MG/2 ML SDV ONE (08:01)
[2021-02-22] MEDS ORDERED: diphenhydrAMINE 50 MG/ML SDV ONE (08:01)
[2021-02-22] MEDS ORDERED: Dexamethasone 4 MG/ML 5 ML MDV ONE (08:01)
[2021-02-22] MEDS: Bupivacaine 0.5% 30 ML SDV ONE ×2 (08:39→08:58)
[2021-02-22] MEDS: Lidocaine 1% with EPINEPHrine 1:100,000 10 ML MDV ONE ×2 (08:58→09:00)
[2021-02-22] MEDS ORDERED: ePHEDrine 50 MG/ML SDV ONE (09:11)
[2021-02-22] MEDS ORDERED: HYDROmorphone 0.5 MG/0.5 ML Syringe ONE ×2 (09:21→10:06)
[2021-02-22] MEDS ORDERED: HYDROmorphone 0.5 MG/0.5 ML Syringe IVPUSH PRN (10:32)
[2021-02-22] MEDS ORDERED: fentaNYL 100 MCG/2 ML SDV IVPUSH PRN (10:32)
--- NOTE | 2021-02-22 10:32 | PCM.POSTAN ---
POST ANESTHESIA ASSESSMENT - MENTAL STATUS Mental Status: Alert, Oriented - VITAL SIGNS Vital Signs: Last Vital Signs Temp 98.8 F 02/22/21 07:18 Pulse 72 02/22/21 07:18 Resp 18 02/22/21 07:18 BP 144/91 H 02/22/21 07:18 Pulse Ox 96 02/22/21 07:18 Vital signs 1025: 141/85 HR 66 RR 20 97.0 98% 5 liters - RESPIRATORY Respiratory Status: Respiratory Rate WNL, Airway Patent, O2 Saturation Stable - CARDIOVASCULAR CV Status: Pulse Rate WNL, Blood Pressure Stable - GASTROINTESTINAL GI Status: No Symptoms - PAIN Pain Score: 0 - POST OP HYDRATION Hydration Status: Adequate & Stable
--- NOTE | 2021-02-22 12:00 | PCM48HPAN ---
Post Anesthesia Note - EVALUATION WITHIN 48HRS OF ANESTHETIC Vital Signs in Normal Range: Yes Patient Participated in Evaluation: Yes Respiratory Function Stable: Yes Airway Patent: Yes Cardiovascular Function Stable: Yes Hydration Status Stable: Yes Pain Control Satisfactory: Yes (being treated) Nausea and Vomiting Control Satisfactory: Yes Mental Status Recovered: Yes Vital Signs: Last Vital Signs Temp 36.3 C 02/22/21 11:30 Pulse 62 02/22/21 11:30 Resp 14 02/22/21 11:30 BP 135/69 02/22/21 11:30 Pulse Ox 96 02/22/21 11:30 - COMMENTS/OBSERVATIONS Free Text/Narrative:: no anesthesia complications noted
[2021-02-22 13:15] VITALS: BP 126/86; PULSE 70
== END 2021-02-22 13:48 | disposition home or self-care (01) ==
LOC: JD.SDS 07:03
PROVIDERS: ATTEND Obstetrics & Gynecology
DX: N87.9 Dysplasia of cervix uteri, unspecified (principal); N72 Inflammatory disease of cervix uteri; N80.0 Endometriosis of uterus; K66.0 Peritoneal adhesions (postprocedural) (postinfection); N83.8 Other noninflammatory disorders of ovary, fallopian tube and broad ligament; I10 Essential (primary) hypertension; E78.2 Mixed hyperlipidemia; E66.01 Morbid (severe) obesity due to excess calories; N26.9 Renal sclerosis, unspecified; Z90.49 Acquired absence of other specified parts of digestive tract; Z98.890 Other specified postprocedural states; Z88.8 Allergy status to other drugs, medicaments and biological substances; Z88.2 Allergy status to sulfonamides; Z91.012 Allergy to eggs; Z79.899 Other long term (current) drug therapy; Z68.41 Body mass index [BMI] 40.0-44.9, adult
CPT/HCPCS: 36415; 58552; 80048; 85025; 86850; 86900; 86901; A9270; J0690; J1100; J1170; J1200; J2250; J2405; J2704; J2710; J3010; J3490; J7030; 00944

== ENCOUNTER 2021-03-15 20:45 | Emergency (ER) | payer OTHER ==
[2021-03-15 20:59] VITALS: BP 178/89; PULSE 89
[2021-03-15] MEDS ORDERED: Cephalexin 500 MG Cap PO ONE (21:13)
--- NOTE | 2021-03-15 21:15 | PCM.CONS ---
H&P History of Present Illness - General Date of Service: 03/15/21 Source of Information: Patient History Limitations: Reports: No Limitations - History of Present Illness Initial Comments - Free Text/Narative: Patient is a 36 y/o woman who underwent an LAVH on 02/22. Had been doing well since surgery. Yesterday, her dog was about to be sick in the house so did black pickler the dog to get her outside. Dog weighs around 30 pounds or so. Today while sitting on couch had an episode of heavier bleeding and passage of a walnut size d clot. Called hospital and was asked to present for evaluation. Currently denies any continued bleeding or vaginal discharge. Having some pain in her lower left abdomen. Has not taken anything for this. Up to today was feeling well with minimal if any pain. No urinary issues. No bowel concerns. - Related Data Allergies/Adverse Reactions: Allergies Allergy/AdvReac Type Severity Reaction Status Date / Time citalopram Allergy Hives Verified 03/15/21 20:59 egg Allergy Cannot Verified 03/15/21 20:59 Remember hydrochlorothiazide Allergy Rash Verified 03/15/21 20:59 [From Zestoretic] lisinopril [From Zestoretic] Allergy Rash Verified 03/15/21 20:59 Sulfa (Sulfonamide AdvReac Headache Verified 03/15/21 20:59 Antibiotics) Home Medications: Home Meds amLODIPine [Norvasc] 5 mg PO DAILY 02/27/19 [History] Ondansetron [Zofran] 4 mg BUCCAL Q6H PRN #5 tab 05/25/19 [Rx] Losartan Potassium 100 mg PO DAILY 12/11/20 [History] Pravastatin [Pravachol] 20 mg PO DAILY 12/11/20 [History] Tacrolimus 3 mg PO QAM 12/11/20 [History] Torsemide [Demadex] 20 mg PO DAILY 12/11/20 [History] mycophenolate mofetiL [Mycophenolate Mofetil] 250 mg PO QAM 12/11/20 [History] atenoloL [Atenolol] 50 mg PO DAILY 12/16/20 [History] Multivitamin 1 tab PO DAILY 02/21/21 [History] Tacrolimus [Prograf] 2 mg PO QPM 02/21/21 [History] mycophenolate mofetiL [Cellcept] 500 mg PO QPM 02/21/21 [History] Acetaminophen/oxyCODONE [Percocet 325-5 MG] 1 - 2 each PO Q6H PRN #25 tab 02/22/21 [Rx] cephALEXin [Keflex] 500 mg PO Q6H #20 cap 03/15/21 [Rx] Past Medical History HEENT History: Reports: Impaired Vision Cardiovascular History: Reports: High Cholesterol, Hypertension Genitourinary History: Reports: Renal Disease Other Genitourinary History: FSGS--focal segmental glomerular sclerosis--was di agnosed in February 2020 by renal biopsy. 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 Psychiatric History: Reports: Anxiety Endocrine/Metabolic History: Reports: Obesity/BMI 30+ Hematologic History: Reports: Polycythemia Immunologic History: Reports: Immunosuppression - Past Surgical History HEENT Surgical History: Reports: Oral Surgery, Tonsillectomy Other HEENT Surgeries/Procedures: Sullivan teeth removed GI Surgical History: Reports: Appendectomy, EGD Female Surgical History: Reports: Breast Biopsy, Hysterectomy Social & Family History - Family History Family Medical History: No Pertinent Family History Cardiac: Reports: Hypertension Oncologic: Reports: Lymphoma - Tobacco Use Tobacco Use Status *Q: Never Tobacco User - Caffeine Use Caffeine Use: Reports: Coffee, Tea - Alcohol Use Alcohol Use History: No - Living Situation & Occupation Living situation: Reports: , with Spouse, with Family (3 kids) Occupation: Unemployed H&P Review of Systems - Review of Systems: Review Of Systems: See Below General: Reports: No Symptoms Pulmonary: Reports: No Symptoms Cardiovascular: Reports: No Symptoms Gastrointestinal: Reports: No Symptoms Genitourinary: Reports: Other (Previous episode of bleeding, pelvic pain) Musculoskeletal: Reports: No Symptoms Exam - Exam Exam: See Below - Vital Signs Vital Signs: Last Vital Signs Temp 37.2 C 03/15/21 20:57 Pulse 89 03/15/21 20:57 Resp 14 03/15/21 20:57 BP 178/89 H 03/15/21 20:57 Pulse Ox 99 03/15/21 20:57 Weight: 122.651 kg - Exam General: Alert, Oriented, Cooperative GI/Abdominal Exam: Soft, Non-Tender, No Distention. No: Guarding, Rebound (Female) Exam: Normal External Exam, Other (Speculum exam with healthy vaginal mucosa. No blood noted at all on exam. Slight mucous like discharge. No thin fluid concerning for peritoneal fluid noted either. Difficult to assess cuff completely in ER, but appears grossly intact. Palpates normal as well) Extremities: Normal Inspection - Patient Data Result Diagrams: 03/15/21 21:25 03/15/21 21:25 Sepsis Event Note - Evaluation Sepsis Screening Result: No Definite Risk - Focused Exam Vital Signs: Vital Signs Temp Pulse Resp BP Pulse Ox 03/15/21 20:57 37.2 C 89 14 178/89 H 99 Consult PN Assessment/Plan Procedures: Procedures ASSAY OF BLOOD/URIC ACID (05/02/15) ASSAY OF FIBRONECTIN (04/08/15) ASSAY OF FREE TESTOSTERONE (08/20/18) ASSAY OF FREE THYROXINE (08/20/18) ASSAY OF GONADOTROPIN (FSH) (08/20/18) ASSAY OF GONADOTROPIN (LH) (08/20/18) ASSAY OF LIPASE (12/11/20) ASSAY OF MAGNESIUM (12/11/20) ASSAY OF PROLACTIN (08/20/18) ASSAY OF PROTEIN URINE (05/05/15) ASSAY OF TOTAL ESTRADIOL (08/20/18) ASSAY OF TOTAL TESTOSTERONE (08/20/18) ASSAY OF TROPONIN QUANT (09/14/20) ASSAY THYROID STIM HORMONE (02/27/19) BL SMEAR W/DIFF WBC COUNT (12/11/20) BLOOD TYPING SEROLOGIC ABO (02/22/21) BLOOD TYPING SEROLOGIC RH(D) (02/22/21) C-REACTIVE PROTEIN (05/25/19) CHEST X-RAY 1 VIEW FRONTAL (04/08/15) CHORIONIC GONADOTROPIN ASSAY (07/21/18) COMPLETE CBC AUTOMATED (12/11/20) COMPLETE CBC W/AUTO DIFF WBC (02/22/21) COMPREHEN METABOLIC PANEL (12/11/20) CT ABD & PELVIS W/O CONTRAST (12/11/20) CT ANGIOGRAPHY CHEST (07/21/18) EGD BIOPSY SINGLE/MULTIPLE (12/19/20) ELECTROCARDIOGRAM TRACING (07/21/18) EMERGENCY DEPT VISIT (12/11/20) EMERGENCY DEPT VISIT (09/14/20) EMERGENCY DEPT VISIT (05/25/19) EMERGENCY DEPT VISIT (07/21/18) EVAL AMNIOTIC FLUID PROTEIN (05/02/15) EXTREMITY STUDY (04/08/15) BIOPHYS PROFIL W/O NST (05/12/15) BIOPHYS PROFILE W/NST (05/02/15) NON-STRESS TEST (05/02/15) FIBRIN DEGRADATION PRODUCTS (05/02/15) FIBRIN DEGRADATION QUANT (09/14/20) FIBRINOGEN ACTIVITY (05/02/15) GLUCOSE TEST (02/21/15) HEMOGLOBIN (02/21/15) HYDRATE IV INFUSION ADD-ON (05/25/19) LAPARO-VAG HYST INCL T/O (02/22/21) METABOLIC PANEL TOTAL CA (02/22/21) OB US >/= 14 WKS SNGL FETUS (01/10/15) OB US FOLLOW-UP PER FETUS (05/12/15) PROTHROMBIN TIME (05/02/15) RBC ANTIBODY SCREEN (02/22/21) RBC SED RATE AUTOMATED (02/27/19) ROUTINE VENIPUNCTURE (02/22/21) SARS-COV-2 COVID-19 AMP PRB (02/20/21) STREP B DNA AMP PROBE (04/25/15) THER/PROPH/DIAG IV INF ADDON (12/11/20) THER/PROPH/DIAG IV INF INIT (12/11/20) THROMBOPLASTIN TIME PARTIAL (05/02/15) TRANSVAGINAL US NON-OB (08/05/18) TTE W/DOPPLER COMPLETE (04/08/15) TX/PRO/DX INJ NEW DRUG ADDON (12/11/20) TX/PRO/DX INJ SAME DRUG SUPERVISOR BEET END (05/25/19) UMBILICAL ARTERY ECHO (05/12/15) URINALYSIS AUTO W/O SCOPE (05/16/15) URINALYSIS AUTO W/SCOPE (12/11/20) URINE CULTURE/COLONY COUNT (04/08/15) URINE TEST (12/19/20) US EXAM ABDO BACK WALL FERRARA (02/27/19) VASCULAR STUDY (02/27/19) Problem List Initiated/Reviewed/Updated: Yes My Orders Last 24 Hours: My Active Orders 03/15/21 21:13 BASIC METABOLIC PANEL,BMP [CHEM] Stat CBC W/O DIFF,HEMOGRAM [HEME] Stat cephALEXin [Keflex] 500 mg PO ONETIME ONE 03/15/21 21:14 Vital Signs [RC] Q30M Plan: Patient with normal exam, no bleeding, no obvious signs of cuff dehiscence or disruption. Question whether patient had release of vaginal cuff hematoma given description of walnut sized clot being passed with bleeding. Hb/Hct assessed and normal. Creatinine slightly elevated from her baseline. Recommend starting Keflex given immunosuppressed state with current medications and following up in clinic tomorrow with repeat labs and exam. If any changes at all overnight she should return for further evaluation. Agrees. Strongly encouraged following lifting restrictions for the full 6-8 weeks after surgery. No lifting greater than 15 pounds
== END 2021-03-15 22:20 | disposition home or self-care (01) ==
LOC: JD.ED 20:45
DX: R10.2 Pelvic and perineal pain (principal); E78.00 Pure hypercholesterolemia, unspecified; I10 Essential (primary) hypertension; E66.9 Obesity, unspecified; Z68.41 Body mass index [BMI] 40.0-44.9, adult; Z91.012 Allergy to eggs; Z88.2 Allergy status to sulfonamides; Z88.8 Allergy status to other drugs, medicaments and biological substances; Z90.710 Acquired absence of both cervix and uterus
CPT/HCPCS: 36415; 80048; 85027; 99283; A9270-GY